=== PATIENT | male | born 1985 | race Caucasian/White ===

== ENCOUNTER → 2019-09-07 11:42 | Outpatient (CLI) | payer OTHER, SELFPAY ==
[2019-09-07 11:50] LABS: Lyme Ab Screen Interpretation REF LAB
[2019-09-07 15:25] LABS: Absolute Lymphocyte Count 1.51 X10^3/uL (0.83-4.51); Absolute Neutrophil Count 5.3 X10^3/uL (2.0-7.7); Basophil# 0.05 X10^3/uL; Basophil% 0.6 % (0-1); Eosinophil# 0.12 X10^3/uL; Eosinophils% 1.5 % (0-5); Hematocrit 45.7 % (40-54); Hemoglobin 15.1 g/dL (13.0-16.5); Lymphocyte # 1.51 X10^3/ul (4.0); Lymphocyte % 19.4 % (19-41); Mean Corpuscular Hgb 29.1 pg (27.0-32.0); Mean Corpuscular Volume 88.1 fL (80-94); Monocyte# 0.74 X10^3/uL; Monocyte% 9.5 % (0-10); NRBC Flagged by Analyzer 0 % (0-5); Neutrophil # 5.31 X10^3/uL (2.7-7.7); Neutrophil % 68.4 % (47-70); Platelet Count 274 K/mm3 (150-450); RBC Distribution Width CV 12.3 % (11.6-14.6); RBC Distribution Width SD 39.4 fl (35.1-43.9); Red Blood Count 5.19 M/mm3 (4.6-6.2); White Blood Count 7.8 K/mm3 (4.4-11.0)
[2019-09-07 15:43] LABS: ALB/GLOB Ratio 1.2 RATIO (0.9-2.4); AST(SGOT) 61 U/L (15-37); Alanine Aminotransfer ALT/SGPT 190 U/L (16-61); Albumin, Serum 4.4 g/dL (3.2-5.0); Alkaline Phosphatase 65 U/L (45-117); Anion Gap 8 (5-15); BUN 13 mg/dL (7-18); BUN/Creat Ratio 12.4 RATIO (10-20); Calcium,Total 9.4 mg/dL (8.5-10.1); Chloride 99 mmol/L (98-107); Creatinine, Serum 1.05 mg/dL (0.70-1.30); EST Glomerular Filtration Rate 85 mL/min (>60); Est Glom Filt Rate - Afr Amer 103 mL/min (>60); Globulin 3.6 g/dL (2.2-4.2); Glucose 91 mg/dL (74-106); Potassium 3.6 mmol/L (3.5-5.1); Sodium Level 138 mmol/L (136-145); Thyroid Stim Hormone (TSH) 2.91 uIU/mL (0.358-3.74)
[2019-09-17 13:48] LABS: Lyme Scn Total Ab w/Rflx 2.51 ISR (0.00-0.90)
== END ==
PROVIDERS: PCP Family Medicine; Referring Provider Family Medicine; Visit Provider Family Medicine
DX: R53.83 Other fatigue (principal); W57.XXXS Bitten or stung by nonvenomous insect and other nonvenomous arthropods, sequela
CPT/HCPCS: 36415; 80053; 84443; 85025; 86618

== ENCOUNTER 2019-10-02 19:51 | Emergency (ER) | payer OTHER, SELFPAY ==
[2019-10-02 19:52] VITALS: BP 154/104; PULSE 73; RESP 17; TEMP 36.6; O2SAT 97; BMI 29.9
[2019-10-02 20:11] LABS: Absolute Lymphocyte Count 1.64 X10^3/uL (0.83-4.51); Absolute Neutrophil Count 5.2 X10^3/uL (2.0-7.7); Basophil# 0.07 X10^3/uL; Basophil% 0.9 % (0-1); Eosinophils% 2.5 % (0-5); Hematocrit 43.7 % (40-54); Hemoglobin 15.5 g/dL (13.0-16.5); Lymphocyte # 1.64 X10^3/ul (4.0); Lymphocyte % 20.7 % (19-41); Mean Corp Hgb Conc 35.5 g/dL (32-36); Mean Corpuscular Hgb 29.8 pg (27.0-32.0); Mean Platelet Vol. 8.6 fl (6.2-12.0); Monocyte# 0.75 X10^3/uL; Monocyte% 9.5 % (0-10); NRBC Flagged by Analyzer 0 % (0-5); Neutrophil # 5.22 X10^3/uL (2.7-7.7); Platelet Count 286 K/mm3 (150-450); RBC Distribution Width CV 12.1 % (11.6-14.6); RBC Distribution Width SD 36.8 fl (35.1-43.9); White Blood Count 7.9 K/mm3 (4.4-11.0)
[2019-10-02 20:23] LABS: Anion Gap 6 (5-15); BUN 12 mg/dL (7-18); BUN/Creat Ratio 10.4 RATIO (10-20); Calcium,Total 9.1 mg/dL (8.5-10.1); Chloride 102 mmol/L (98-107); Creatinine, Serum 1.15 mg/dL (0.70-1.30); EST Glomerular Filtration Rate 77 mL/min (>60); Est Glom Filt Rate - Afr Amer 93 mL/min (>60); Estimated Creatinine Clearance 80.91 ml/min; Glucose 90 mg/dL (74-106); Potassium 3.7 mmol/L (3.5-5.1); Sodium Level 139 mmol/L (136-145)
--- NOTE | 2019-10-02 20:53 | CT_ITS ---
STUDY: CT ABDOMEN AND PELVIS WITH CONTRAST REASON FOR EXAM: Male, 33 years old. History of Lyme disease 2 weeks ago, abdominal pain. RADIATION DOSAGE (If Supplied By Facility): CTDIvol = ( 7.14 ) mGy, DLP = ( 380.21 ) mGycm TECHNIQUE: Transaxial images were obtained from the dome of the diaphragm to the symphysis pubis without oral contrast. IV 100mL Isovue-370 was administered. Sagittal and coronal images were reconstructed. Individualized dose optimization techniques were used for this CT. COMPARISON: None. FINDINGS: The visualized portions of lung bases demonstrate hypoventilatory changes. Vague densities are seen in the right lower lung and mild groundglass opacity. Early infiltrate is possible.. The visualized portions of the heart are within normal limits. Normal liver. The gallbladder is contracted. Normal spleen. Normal pancreas. Normal bilateral adrenal glands. Normal right kidney. Normal left kidney. Normal visualized stomach. Normal small intestine. No evidence of acute diverticulitis. Fecal retention. The appendix is visualized and appears normal. Normal abdominal aorta. Normal inferior vena cava. Normal retroperitoneum. Normal urinary bladder. There is a small umbilical hernia containing fat. The osseous structures are essentially unremarkable. CT/Abdomen/Pelvis without Cont IMPRESSION: 1. Vague) densities which may represent early infiltrate or atelectasis. 2. Otherwise no demonstrated acute process. Electronically Signed: Daniel Son MD at 21:54 EDT Tel , Service support ,
--- NOTE | 2019-10-02 20:54 | ED.DCSUM_ITS ---
History of Present Illness Chief Complaint: Abd Pain Informant: Patient Onset: Yesterday Current Severity: Mild Maximum Severity: Moderate Narrative: Patient present secondary to bilateral abdominal pain. Symptoms started yesterday morning. He states it seems to move around. 2 weeks ago patient was seen by his PCP with a 2-week history of generalized body aches and not feeling well. At that time he requested a Covid test and a Lyme test. His Lyme antibody titers came back elevated. He was given a week of doxycycline which he finished on Friday. By Friday he states the body aches which had improved had returned. Yesterday he developed bilateral abdominal pain. He denies fever or chills. He denies nausea or vomiting. He developed a slight rash on his abdomen today. - Past Medical History (1) Lyme disease Status: Acute Past Medical History - Allergies and Home Meds Allergies/Adverse Reactions: Allergies No Known Allergies Allergy (Verified 10/02/19 19:51) Primary Care Physician: Chad Medeiros MD [Primary Care Provider] - Prior records reviewed: Yes Lives: Spouse/ Significant Other Review of Systems General: Denies: Chills, Fever Eyes: Denies: Visual changes - bilaterally ENT: Denies: Bilateral ear pain Cardiovascular: Denies: Chest pain Respiratory: Denies: Dyspnea, Cough Gastrointestinal: Reports: Abdominal pain. Denies: Nausea, Vomiting, Diarrhea Genitourinary: Denies: Dysuria Musculoskeletal: Denies: Swelling, Extremity Pain Skin: Reports: Rash Neurological: Denies: Headache Hematologic: Denies: Easy bruising Allergy: Denies: Uticaria Physical Exam Vital Signs/Narrative: Vital Signs Temp Pulse Resp BP Pulse Ox 10/02/19 19:52 97.9 F 73 17 154/104 H 97 Inital Vital Signs reviewed: Yes General: Well nourished, Well developed Head: Normocephalic ENT: Moist mucous membranes Neck: Supple Cardiovascular: Regular rate, Regular rhythm Respiratory: No distress, CTA bilaterally Abdomen: Soft, Nontender, Hypoactive bowel sounds Back: Nontender Skin: - - Faint lacy erythema over the abdomen. This is present on both right and left sides. Does not follow dermatomal distribution. No vesicles. Neurological: Alert, Oriented x3, Normal Strength, Normal Sensation Psychological: Normal affect Diagnostic/Tx/Re-eval Impressions Abdomen/Pelvis CT 10/02/19 20:53 IMPRESSION: 1. Vague) densities which may represent early infiltrate or atelectasis. 2. Otherwise no demonstrated acute process. Electronically Signed: Daniel Son MD at 21:54 EDT Tel , Service support , 10/02/19 20:53 Abdomen/Pelvis without Cont [CT] Stat Laboratory Results 10/02/19 10/02/19 10/02/19 19:50 19:50 19:57 WBC 7.9 RBC 5.20 Hgb 15.5 Hct 43.7 MCV 84.0 MCH 29.8 MCHC 35.5 RDW Std Deviation 36.8 RDW Coeff of Karlo 12.1 Plt Count 286 MPV 8.6 Immature Gran % (Auto) 0.400 Neut % (Auto) 66.0 Lymph % (Auto) 20.7 [place] % (Auto) 9.5 Eos % (Auto) 2.5 Baso % (Auto) 0.9 Absolute Neuts (auto) 5.2 Absolute Lymphs (auto) 1.64 Nucleated RBC % 0 Sodium 139 Potassium 3.7 Chloride 102 Carbon Dioxide 31.0 Anion Gap 6 BUN 12 Creatinine 1.15 Estim Creat Clear Calc 80.91 Est GFR (MDRD) Af Amer 93 Est GFR (MDRD) Non-Af 77 BUN/Creatinine Ratio 10.4 Glucose 90 Calcium 9.1 Total Bilirubin 0.60 Direct Bilirubin 0.19 AST 48 H ALT 154 H Alkaline Phosphatase 63 Total Protein 8.0 Albumin 4.6 Globulin 3.4 Lipase 195 Urine Color Urine Clarity Urine pH Ur Specific [place] Urine Protein Urine Glucose (UA) Urine Ketones Urine Occult Blood Urine Nitrite Urine Bilirubin Urine Urobilinogen Ur Leukocyte Esterase Urine RBC Urine WBC Ur Squamous Epith Cells Urine Bacteria Urine Mucus 10/02/19 22:10 WBC RBC Hgb Hct MCV MCH MCHC RDW Std Deviation RDW Coeff of [place] Plt Count MPV Immature Gran % (Auto) Neut % (Auto) Lymph % (Auto) [place] % (Auto) Eos % (Auto) Baso % (Auto) Absolute Neuts (auto) Absolute Lymphs (auto) Nucleated RBC % Sodium Potassium Chloride Carbon Dioxide Anion Gap BUN Creatinine Estim Creat Clear Calc Est GFR (MDRD) Af Amer Est GFR (MDRD) Non-Af BUN/Creatinine Ratio Glucose Calcium Total Bilirubin Direct Bilirubin AST ALT Alkaline Phosphatase Total Protein Albumin Globulin Lipase Urine Color Yellow Urine Clarity Sl. Cloudy Urine pH 7.0 Ur Specific [place] 1.010 Urine Protein Negative Urine Glucose (UA) Normal Urine Ketones Negative Urine Occult Blood Negative Urine Nitrite Negative Urine Bilirubin Negative Urine Urobilinogen Normal Ur Leukocyte Esterase Negative Urine RBC 0 SEEN Urine WBC 0 SEEN Ur Squamous Epith Cells 0 SEEN Urine Bacteria 0 SEEN Urine Mucus 0 SEEN - Medical Decision Making Work-up here is largely unremarkable. ALT and AST are elevated, but improved when compared to labs from few weeks ago. Patient has had 1 week of doxycycline. Typical treatment for Lyme disease is 14 to 21 days. He will be given a prescription for 2 additional weeks. ED Disposition - Plan for ED Patient: Disposition: Home or Assisted Living Diagnosis: Abdominal pain, Lyme disease Instructions: ED Unknown Causes of Abdominal Pain Male, ED Lyme Disease Prescriptions: Doxycycline 100 mg PO BID #28 cap Transmission Status: Pending to [id number] Referrals: Chad Medeiros MD [Primary Care Provider] - 1-2 Weeks
[2019-10-02 21:27] LABS: AST(SGOT) 48 U/L (15-37); Alanine Aminotransfer ALT/SGPT 154 U/L (16-61); Albumin, Serum 4.6 g/dL (3.2-5.0); Alkaline Phosphatase 63 U/L (45-117); Bilirubin, Direct 0.19 mg/dL (0.00-0.30); Globulin 3.4 g/dL (2.2-4.2); Lipase 195 U/L (73-393)
[2019-10-02 22:15] LABS: Bacteria 0 SEEN /hpf (None Seen); Mucous, Urine 0 SEEN /hpf (<or=2+); Red Blood Cells-Urine 0 SEEN /hpf (0-5); Squamous Epithelial Cells - UA 0 SEEN /hpf (0-5); White Blood Cells 0 SEEN /hpf (0-5)
[2019-10-02 22:20] LABS: Color, Urine Yellow (Yellow); Glucose, Dipstick Normal (Normal); Ketone-Dipstick Negative (Negative); Leukocyte Esterase-Dipstick Negative /ul (Negative); Nitrite-Dipstick Negative (Negative); Occult Blood-Urine Negative /ul (Negative); Protein-Dipstick Negative (Negative); Urine Bilirubin Dipstick Negative (Negative); Urine Clarity Sl. Cloudy (Clear); Urine Urobilinogen Normal (Normal)
[2019-10-02 22:36] VITALS: BP 138/87; PULSE 90; RESP 18; O2SAT 98
[2019-10-02] MEDS: Doxycycline 100 MG CAPSULE PO (22:47)
== END 2019-10-02 22:50 | disposition home or self-care (01) ==
PROVIDERS: Emergency Provider Emergency Medicine; PCP Family Medicine
DX: R10.9 Unspecified abdominal pain (principal); A69.20 Lyme disease, unspecified
CPT/HCPCS: 74176; 80048; 80076; 81001; 83690; 85025; 99283; A4216

== ENCOUNTER → 2019-10-04 11:51 | Outpatient (CLI) | payer OTHER, SELFPAY ==
[2019-10-02 19:52] VITALS: BMI 29.9
[2019-10-09 20:07] LABS: Lyme IgG P18 Ab Absent (.); Lyme IgG P23 Ab Absent (.); Lyme IgG P28 Ab Present (.); Lyme IgG P30 Ab Present (.); Lyme IgG P39 Ab Absent (.); Lyme IgG P41 Ab Present (.); Lyme IgG P45 Ab Absent (.); Lyme IgG P58 Ab Present (.); Lyme IgG P66 Ab Absent (.); Lyme IgG P93 Ab Present (.); Lyme IgM P23 Ab Absent (.); Lyme IgM P39 Ab Absent (.); Lyme IgM P41 Ab Absent (.)
[2019-10-10 04:48] LABS: Lyme IgG WB Interpretation Positive (.); Lyme IgM WB Interpretation Negative (.)
== END ==
PROVIDERS: PCP Family Medicine; Referring Provider Family Medicine; Visit Provider Family Medicine
DX: A69.20 Lyme disease, unspecified (principal)
CPT/HCPCS: 36415; 86617

== ENCOUNTER → 2019-10-20 | Outpatient (CLI) | payer OTHER, SELFPAY ==
[2019-10-02 19:52] VITALS: BMI 29.9
[2019-10-21 06:41] LABS: SARS-COV-2 TOTAL ABS Nonreactive (Nonreactive)
== END | disposition home or self-care (01) ==
LOC: MFPLAB 15:56 → LABSPEC 15:58
PROVIDERS: PCP Family Medicine; Referring Provider Family Medicine
DX: A69.20 Lyme disease, unspecified (principal)
CPT/HCPCS: 86769

== ENCOUNTER → 2022-05-14 | Outpatient (CLI) | payer OTHER, SELFPAY ==
--- NOTE | 2022-05-14 11:06 | RAD_ITS ---
EXAM: XR LEFT ANKLE COMPLETE, 3 OR MORE VIEWS CLINICAL INDICATION: ANKLE STRAIN TECHNIQUE: Frontal, lateral and oblique views of the left ankle. This report was created using [employer] report generation technology. COMPARISON: None. FINDINGS: BONES/JOINTS: Unremarkable. No acute fracture. No subluxation. Normal alignment. Preservation of the joint space. No sclerotic or destructive changes observed. SOFT TISSUES: Unremarkable. No soft tissue swelling or gas. No radiopaque foreign body. RAD/Ankle min 3 Views IMPRESSION: Negative left ankle x-rays. Electronically Signed: Andrea Lawrence MD at 17:23 EST ,
== END | disposition home or self-care (01) ==
LOC: MTRAD 11:05
PROVIDERS: PCP Family Medicine; Referring Provider Family Medicine; Visit Provider Family Medicine
DX: S96.912A Strain of unspecified muscle and tendon at ankle and foot level, left foot, initial encounter (principal)
CPT/HCPCS: 73610

== ENCOUNTER → 2022-10-09 | Outpatient (CLI) | payer OTHER, SELFPAY ==
--- NOTE | 2022-10-09 09:50 | RAD_ITS ---
INDICATION: Left palm injury EXAMINATION/TECHNIQUE: X-RAY - LEFT XR Hand Min 3 Views COMPARISON: None. FINDINGS: No acute fracture or malalignment. No blastic or lytic lesions. No degenerative changes are seen. The soft tissues are unremarkable. RAD/Hand Min 3 Views IMPRESSION: No acute radiographic abnormalities. Electronically Signed: Deshawn Marsh MD at 18:57 EDT ,
== END | disposition home or self-care (01) ==
LOC: MTRAD 09:46
PROVIDERS: PCP Family Medicine; Referring Provider Family Medicine; Visit Provider Family Medicine
DX: S69.92XA Unspecified injury of left wrist, hand and finger(s), initial encounter (principal); X58.XXXA Exposure to other specified factors, initial encounter
CPT/HCPCS: 73130

== ENCOUNTER → 2022-10-29 | Outpatient (CLI) | payer OTHER, SELFPAY ==
[2022-11-02 15:07] LABS: Lyme IgG P18 Ab Absent (.); Lyme IgG P23 Ab Present (.); Lyme IgG P28 Ab Present (.); Lyme IgG P30 Ab Present (.); Lyme IgG P39 Ab Absent (.); Lyme IgG P41 Ab Present (.); Lyme IgG P45 Ab Absent (.); Lyme IgG P58 Ab Present (.); Lyme IgG P66 Ab Absent (.); Lyme IgG P93 Ab Absent (.); Lyme IgG WB Interpretation Positive (.); Lyme IgM P23 Ab Absent (.); Lyme IgM P39 Ab Absent (.); Lyme IgM P41 Ab Absent (.); Lyme IgM WB Interpretation Negative (.)
== END | disposition home or self-care (01) ==
LOC: MTLAB 12:46
PROVIDERS: PCP Family Medicine; Referring Provider Family Medicine; Visit Provider Family Medicine
DX: S20.361A Insect bite (nonvenomous) of right front wall of thorax, initial encounter (principal); W57.XXXA Bitten or stung by nonvenomous insect and other nonvenomous arthropods, initial encounter
CPT/HCPCS: 36415; 86617

== ENCOUNTER → 2022-11-05 | Outpatient (CLI) | payer OTHER, SELFPAY ==
[2022-11-05 18:32] LABS: Absolute Neutrophil Count 5.1 X10^3/uL (2.0-7.7); Basophil# 0.05 X10^3/uL; Basophil% 0.7 % (0-1); Eosinophil# 0.07 X10^3/uL; Hematocrit 43.6 % (40-54); Hemoglobin 14.6 g/dL (13.0-16.5); Lymphocyte % 17.5 % (19-41); Mean Corp Hgb Conc 33.5 g/dL (32-36); Mean Corpuscular Hgb 29.4 pg (27.0-32.0); Mean Corpuscular Volume 87.9 fL (80-94); Monocyte# 0.47 X10^3/uL; Monocyte% 6.8 % (0-10); NRBC Flagged by Analyzer 0 % (0-5); Neutrophil # 5.06 X10^3/uL (2.7-7.7); Neutrophil % 73.7 % (47-70); Platelet Count 293 K/mm3 (150-450); RBC Distribution Width SD 41.8 fl (35.1-43.9); Red Blood Count 4.96 M/mm3 (4.6-6.2); White Blood Count 6.9 K/mm3 (4.4-11.0)
[2022-11-05 19:06] LABS: ALB/GLOB Ratio 1.3 RATIO (0.9-2.4); AST(SGOT) 18 U/L (15-37); Alanine Aminotransfer ALT/SGPT 25 U/L (16-61); Albumin, Serum 4.2 g/dL (3.2-5.0); Alkaline Phosphatase 67 U/L (45-117); Anion Gap 7 (5-15); BUN 17 mg/dL (7-18); BUN/Creat Ratio 17.5 RATIO (10-20); Calcium,Total 9.4 mg/dL (8.5-10.1); Chloride 105 mmol/L (98-107); Cholesterol 157 mg/dL (200); Creatinine, Serum 0.97 mg/dL (0.70-1.30); EST Glomerular Filtration Rate 91 mL/min (>60); Est Glom Filt Rate - Afr Amer 110 mL/min (>60); Globulin 3.3 g/dL (2.2-4.2); Glucose 85 mg/dL (74-106); High Density Lipoprotein 68 mg/dL; Protein, Total 7.5 g/dL (6.4-8.2); Sodium Level 139 mmol/L (136-145); Triglycerides 92 mg/dL; Very Low Density Lipoprotein 18 mg/dL (5-40)
== END | disposition home or self-care (01) ==
LOC: MFPLAB 16:24
PROVIDERS: PCP Family Medicine; Visit Provider Family Medicine
DX: Z00.00 Encounter for general adult medical examination without abnormal findings (principal); Z13.220 Encounter for screening for lipoid disorders
CPT/HCPCS: 36415; 80053; 80061; 85025

== ENCOUNTER → 2022-11-07 | Outpatient (CLI) | payer OTHER, SELFPAY ==
--- NOTE | 2022-11-11 07:40 | PFT ---
INTRODUCTION: The patient is a 37-year-old male who presents for pulmonary function studies secondary to a diagnosis of shortness of breath. Respiratory therapy reported good patient effort. Bronchodilators were used during testing. INTERPRETATION: Forced expiration spirometry demonstrates no evidence of a large airways obstructive ventilatory defect. There was no significant response to aerosolized bronchodilators. Spirograms are of good quality and plateau normally. Body plethysmography was performed and revealed lung volumes to be within normal limits. Diffusing capacity by single breath CO was also within normal limits. IMPRESSION: Grossly normal pulmonary function studies.
== END | disposition home or self-care (01) ==
LOC: PSN 08:19
PROVIDERS: PCP Family Medicine; Referring Provider Family Medicine; Visit Provider Family Medicine
DX: R06.02 Shortness of breath (principal)
CPT/HCPCS: 94060; 94726; 94729

== ENCOUNTER 2023-12-11 19:33 | Emergency (ER) | payer OTHER, SELFPAY ==
[2023-12-11 19:35] VITALS: BP 147/96; PULSE 84; RESP 16; TEMP 35.5; O2SAT 95
--- NOTE | 2023-12-11 20:04 | EX.ED.UPPERE ---
HPI <JIMENEZ Rodriguez - Last Filed: 12/11/23 21:26> History of Present Illness Chief Complaint: Upper Extremity Injury Narrative Narrative: Patient is a 38-year-old male with no significant medical history presents to the [facility] apartment with right shoulder pain. Patient was playing soccer when he fell on his right shoulder. Patient states that he is having significant pain with any sort of movement. Patient does have pain into his clavicle. He denies any head or neck injury. PFSH <JIMENEZ Rodriguez - Last Filed: 12/11/23 21:26> [facility] Home Medications ?Medication ?Instructions ?Recorded ?Last Taken ?Type doxycycline monohydrate 100 mg 100 mg PO BID #28 caps 10/02/19 Unknown Rx capsule ibuprofen 600 mg tablet 600 mg PO Q6H PRN PRN pain #20 12/11/23 Unknown Rx TABLETS ondansetron 4 mg disintegrating 4 mg PO Q8H PRN PRN Nausea #10 tabs 12/11/23 Unknown Rx tablet oxycodone-acetaminophen 5 mg-325 1 tab PO Q8H PRN pain 3 days #12 12/11/23 Unknown Rx mg tablet (Percocet) tabs Allergy/AdvReac Type Severity Reaction Status Date / Time No Known Allergies Allergy Verified 12/11/23 19:35 Social History Smoking Status: Former smoker ROS <JIMENEZ Rodriguez - Last Filed: 12/11/23 21:26> ROS ED ROS Narrative Constitutional: Negative for fever, chills, weight loss, weakness Eyes: Negative for vision loss, vision change, double vision ENT: Negative for any sore throat, ear pain, congestion Cardiovascular: Negative for any chest pain, tightness, palpitations Respiratory: Negative for any cough, sputum production, hemoptysis, dyspnea, dyspnea on exertion, orthopnea Gastrointestinal: Negative for any abdominal pain, nausea, vomiting, diarrhea, constipation, blood in stool, blood in vomit : Negative for any urinary frequency, dysuria, retention, blood in urine Muscle skeletal: Negative for any neck pain, back pain. Positive right shoulder pain Neurological: Negative for any headache, syncope, dizziness Skin: Negative for any rashes, itching, abrasions, lacerations Psychiatric: Negative for any depression, anxiety, stress, suicidal ideation, homicidal ideation Hematologic: Negative for any excessive bruising, easy bleeding EXAM <JIMENEZ Rodriguez - Last Filed: 12/11/23 21:26> Physical Exam Narrative Exam Narrative: Vital signs reviewed. Extremities: Patient does have some pain to the anterior shoulder, distal clavicular area. Is difficult to see if there is any deformity secondary the patient being unable to move the right arm from the body. Patient is able to make a full fist. +2 radial pulse. No numbness or tingling noted. Neuro: Cranial nerves II through XII intact, no focal neurological deficits. Skin: Clean dry and intact with no rash, purpura, petechiae, vesicles or pustules. Backs/flank: No CVA tenderness, no midline spinal tenderness, no deformity. Psych: Normal mood and affect. No SI, HI or acute psychosis. Const Vital Signs: 12/11/23 19:35 Temperature 96 F L Temperature Source Temporal Pulse Rate 84 Respiratory Rate 16 Blood Pressure 147/96 H Blood Pressure Mean 113 Pulse Ox 95 Oxygen Delivery Method Room Air MDM <JIMENEZ Rodriguez - Last Filed: 12/11/23 21:26> MDM Treatment and Re-Evaluation Narrative: Differential diagnosis includes however is not limited to: Clavicular fracture, humeral fracture, shoulder joint dislocation, contusion Patient appears to be in mild distress secondary to pain to the right shoulder. Presenting to the emergency department for pain to the right shoulder after mechanical fall while playing soccer. Patient will receive x-rays of the right shoulder, I am dose of morphine, oral Zofran will be given. All radiologic examinations were read, reviewed by the emergency department attending. From these reads, a plan of care will be put in place. Patient was redosed with oxycodone. Patient's shoulder x-ray was negative. However patient does have a mid clavicular fracture, clavicle film shows comminuted angulated displaced and distracted fracture of the mid right clavicle. I did speak with orthopedic, Dr. Victoria. Patient was placed in a sling, will follow-up outpatient. Patient be given pain medicine. Instructed to return for any worsening symptoms. Patient stable for discharge <Dr. Candida Shipley DO - Last Filed: 12/11/23 22:22> [facility] Treatment and Re-Evaluation Narrative: Differential diagnosis includes however is not limited to: Clavicular fracture, humeral fracture, shoulder joint dislocation, contusion Patient appears to be in mild distress secondary to pain to the right shoulder. Presenting to the emergency department for pain to the right shoulder after mechanical fall while playing soccer. Patient will receive x-rays of the right shoulder, I am dose of morphine, oral Zofran will be given. All radiologic examinations were read, reviewed by the emergency department attending. From these reads, a plan of care will be put in place. Patient was redosed with oxycodone. Patient's shoulder x-ray was negative. However patient does have a mid clavicular fracture, clavicle film shows comminuted angulated displaced and distracted fracture of the mid right clavicle. I did speak with orthopedic, Dr. Victoria. Patient was placed in a sling, will follow-up outpatient. Patient be given pain medicine. Instructed to return for any worsening symptoms. Patient stable for discharge I have personally performed a face to face assessment of the patient and have reviewed the AMY Note. I performed a substantive portion of the visit including all aspects of the following. My randall findings include: History is patient is a 38-year-old male with no signal past medical history besides Lyme disease presenting for acute onset of right shoulder pain. Patient was playing soccer when he was pushed by another player and landed on his shoulder. He is having significant pain. Is worse with any movement. Denies any head injury or loss of conscious. Denies associate numbness or tingling. No other complaints or concerns at this time. Exam is patient has tenderness and swelling over the right mid clavicle. No tenderness palpation over the shoulder. Decreased range of motion of the shoulder secondary to pain. No obvious deformity of the shoulder. Normal strength of the right hand. No other bony tenderness or abnormalities appreciated. Lungs clear to auscultation bilaterally. Heart regular rate and rhythm. No open wounds. Medical Decison Making Protocol x-ray shows a comminuted right clavicle fracture. Right shoulder x-ray does not show any fracture dislocation of the shoulder/proximal humerus but does also show the clavicle fracture. This is reviewed by myself as well as radiology. Patient placed in a sling. Given IM morphine initially for pain and then oral oxycodone. Nurse practitioner spoke with Dr. Victoria who is agreeable with outpatient follow-up. Discussed pain control. Will be treated with oxycodone and Motrin. Given return precautions. Discharged home in stable condition Other additions or changes: [None] Discharge Plan Triage Chief Complaint: Upper Extremity Injury ED Midlevel Provider: Reji Hoff ED Provider: Candida Shipley Dx/Rx/DC Orders Clinical Impression: Clavicular fracture Instructions: ED Fracture, Clavicle Prescriptions: New oxycodone-acetaminophen [Percocet] 5-325 mg tablet 1 tab PO Q8H PRN (Reason: pain) 3 Days Qty: 12 0RF ibuprofen 600 mg tablet 600 mg PO Q6H PRN PRN (Reason: pain) Qty: 20 0RF ondansetron 4 mg tablet,disintegrating 4 mg PO Q8H PRN PRN (Reason: Nausea) Qty: 10 0RF No Action doxycycline monohydrate 100 MG capsule 100 mg PO BID Qty: 28 0RF Primary Care Provider: Care Physician,No Primary Referrals: Hernan Victoria MD [Med Staff - Active Staff] - Care Physician,No Primary [Primary Care Provider] - Activity Restrictions/Additional Instructions: You need to wear the sling anytime when you are up. Use the pain medicine including the Percocet as well as the ibuprofen. Ensure that you ice, they will be very important. You need to follow-up outpatient. Print Language: Vincentian Disposition Disposition: Home, Self Care
--- NOTE | 2023-12-11 20:20 | RAD_ITS ---
STUDY: X-RAY - RIGHT SHOULDER REASON FOR EXAM: Male, 38 years old. fall TECHNIQUE: 2 view(s) of the shoulder. COMPARISON: None. FINDINGS: Comminuted displaced fractures of the mid right clavicle. Normal glenohumeral articulation. Normal acromioclavicular joint. Normal acromion. Normal humeral head and visualized proximal humerus. The soft tissue structures are unremarkable. Normal visualized pulmonary apex. RAD/Shoulder min 2 Views IMPRESSION: Mid clavicular fracture, otherwise normal x-ray examination of the shoulder. Electronically Signed: Augie Alcala MD at 20:51 EDT ,
[2023-12-11] MEDS: Morphine 4 MG/ML Syringe IM (20:30)
[2023-12-11] MEDS: Ondansetron ODT 4 MG Tablet PO (20:30)
--- NOTE | 2023-12-11 20:30 | RAD_ITS ---
STUDY: X-RAY - RIGHT CLAVICLE REASON FOR EXAM: Male, 38 years old. FX TECHNIQUE: 2 view(s) of the clavicle. COMPARISON: None. FINDINGS: Comminuted displaced and a fracture of the mid right clavicle with a 2.6 cm distracted butterfly fragment directed caudal. Normal acromioclavicular articulation. Normal visualized sternoclavicular articulation. Normal visualized pulmonary apex. RAD/Clavicle IMPRESSION: Comminuted angulated displaced and distracted fractures of the mid right clavicle. Electronically Signed: Augie Alcala MD at 20:50 EDT ,
[2023-12-11] MEDS: oxyCODONE 5 MG Tablet PO (21:56)
== END 2023-12-11 22:13 | disposition home or self-care (01) ==
PROVIDERS: Emergency Provider Emergency Medicine; Visit Provider Emergency Medicine
DX: S42.001A Fracture of unspecified part of right clavicle, initial encounter for closed fracture (principal); W18.39XA Other fall on same level, initial encounter; Y93.66 Activity, soccer; Z87.891 Personal history of nicotine dependence
CPT/HCPCS: 73000; 73030; 96372; 99282

== ENCOUNTER 2023-12-19 10:43 | Day surgery (SDC) | payer OTHER, SELFPAY ==
[2023-12-19] VITALS (10 sets, daily range): BP systolic 116–135; BP diastolic 61–90; PULSE 55–78; RESP 16–18; TEMP 36.1–36.6; O2SAT 91–100; BMI 25.0
[2023-12-19] MEDS: Lactated Ringers 1,000 ML 15 ML IV (11:24)
--- NOTE | 2023-12-19 11:56 | PCM.PRE.AN2 ---
ASA Classification* ASA Classification ASA Classification: 2 Assessment & Plan Anesthesia* Anesthesia Assessment Anesthesia Assessment: Discussed sedation and/or anesthesia options, risks, benefits, and alternatives with patient/parents/legal guardian/POA. Questions invited. The patient/parents/legal guardian/POA seems to understand and agrees to proceed with anesthesia plan. Reviewed the physical assessment, medical history, allergy history and patient home medications list prior to surgery/procedure/anesthetic and documented any changes. Performed airway and anesthesia risk assessments. Anesthesia Type Anesthesia Type: General and Block (Patient is consented for interscalene block.) History Source History Obtained from:: Patient and Chart Anesthesia Focused Assessment* Temperature: 98 F Pulse Rate: 55 Blood Pressure: 131/83 Respiratory Rate: 16 Pulse Ox: 100 Oxygen Delivery Method: Room Air Airway Assessment Mouth opens: >3 cm Mallampati Score: II Teeth Condition: Caps/Crowns (Patient has a crown top left molar. It is tight.) and Chipped/Broken (Patient has a chipped tooth at #9.) Neck Range of motion (ROM): Full ROM Focused Labs Anesthesia Preop lab: CBC WBC 6.9 K/mm3 (4.4-11.0) 11/05/22 16:29 RBC 4.96 M/mm3 (4.6-6.2) 11/05/22 16:29 Hgb 14.6 g/dL (13.0-16.5) 11/05/22 16:29 Hct 43.6 % (40-54) 11/05/22 16:29 Plt Count 293 K/mm3 (150-450) 11/05/22 16:29 CHEMISTRY Potassium 4.0 mmol/L (3.5-5.1) 11/05/22 16:29 Sodium 139 mmol/L (136-145) 11/05/22 16:29 BUN 17 mg/dL (7-18) 11/05/22 16:29 Creatinine 0.97 mg/dL (0.70-1.30) 11/05/22 16:29 Glucose 85 mg/dL (74-106) 11/05/22 16:29 TSH 2.91 uIU/mL (0.358-3.74) 09/07/19 11:48 COAG Pre-Assessment Diagnosis/Proposed Procedure Planned Operative Procedure(s): orif right clavicle Anesthesia History 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 When Was Last Pacemaker Check QUESTION #4 FULL TEXT: You/Your Family Experience fever (hyperthermia) with Anesthesia Last Oral Intake Last Oral intake: Last Oral Intake NPO since 21:00 12/19/23 11:25 Meds taken in AM with sips of No 12/19/23 11:25 water? Meds patient instructed to take am of surgery PONV PONV - chief lock tender operator: PONV - chief lock tender operator Female No 12/17/23 11:18 HX of Motion Sickness Yes 12/17/23 11:18 HX of N/V After Surgery No 12/17/23 11:18 Non-Smoker Yes 12/17/23 11:18 Duration of Surgery greater Yes 12/17/23 11:18 than 60 minutes Number of Risk Factors 3 12/17/23 11:18 PONV Score Moderate Risk 12/17/23 11:18 Height & Weight Height & Weight: Anesthesia: Height & Weight Height 5 ft 10 in 12/19/23 11:25 Weight: 79 kg 12/19/23 11:25 Body Mass Index (BMI) 25.0 12/19/23 11:25 Respiratory Assessment Respiratory Assessment - chief lock tender operator: Respiratory Tract Infection Hx - chief lock tender operator Hx Respiratory Tract Infection No 12/17/23 11:18 STOP Sleep Apnea STOP Sleep Apnea - chief lock tender operator: STOP Sleep Apnea - chief lock tender operator Hx Hypertension No 12/17/23 11:18 Hx Sleep Apnea No 12/17/23 11:18 CPAP BIPAP Do you snore loudly (louder No 12/17/23 11:18 than talking or can be heard Do you often feel tired/ No 12/17/23 11:18 fatigued/ sleepy during daytime? Has anyone observed you stop No 12/17/23 11:18 breathing during sleep? STOP Results Negative 12/17/23 11:18 QUESTION #5 FULL TEXT : Do you snore loudly (louder than talking or can be heard through closed doors)? 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 Specify any problems Hx of Preganancy in last 3 N/A 12/17/23 11:18 Months Nurse Filling Out Transfusion NBUCHER 12/17/23 11:18 & Questions: Date: 12/17/23 12/17/23 11:18 Time: 11:19 12/17/23 11:18 Patient unable to answer at this time (ie. confused, unrespo /Reproduction History /Reproductive History - chief lock tender operator: /Reproductive Hx- chief lock tender operator Hx Now No 12/17/23 11:18 Gestational Age (in weeks): EDC: Hx Hx Para Hx Section SAB No 12/17/23 11:18 Active Medications Active Medications: Current Medications Generic Name Dose Route Start Last Admin Trade Name Freq PRN Reason Stop Dose Admin Cefazolin Sodium 2 gm/ Sodium 110 mls @ 150 mls/hr 12/19/23 12:15 Chloride IV 12/19/23 12:58 PREOP ONE Lactated Ringer's 1,000 mls @ 15 mls/hr 12/19/23 11:00 12/19/23 11:24 IV 15 mls/hr .Q48H JC Administration PFSH Medical History Alcohol use Restless legs Non-smoker Home Medications ?Medication ?Instructions ?Recorded ?Last Taken ?Type ibuprofen 600 mg tablet 600 mg PO Q6H PRN PRN pain #20 12/11/23 12/18/23 Rx TABLETS ondansetron 4 mg disintegrating 4 mg PO Q8H PRN PRN Nausea #10 tabs 12/11/23 Unknown Rx tablet oxycodone-acetaminophen 5 mg-325 1 tab PO Q8H PRN pain 3 days #12 12/11/23 Unknown Rx mg tablet (Percocet) tabs tramadol 50 mg tablet 50 mg PO TID PRN pain 12/16/23 Unknown History trazodone 50 mg tablet 100 mg PO QHS PRN sleep 12/16/23 12/18/23 History Allergy/AdvReac Type Severity Reaction Status Date / Time No Known Allergies Allergy Verified 12/19/23 11:21 Surgical History History of wisdom tooth extraction Social History Smoking Status: Never smoker Review of Systems (Anesthesia) ROS Narrative System reviewed and no additional complaints, except as documented.
--- NOTE | 2023-12-19 12:13 | PCM.HP.STD ---
HPI - General HPI Narrative MOE FIELD, is a 38 M who presents for right clavicle ORIF. no changes to h and p. right clavicle marked. slight delay due to add on case. should still proceed this afternoon. ok with block. RAB, post op instructions and narcotic counselling done. ok to proceed. answered a few more questions. MR#: [id number] Acct: [id number] Name: MOE FIELD Rep #: [id number] : 1985 Provider: Dr. Hernan Victoria MD Age/Sex: 38/M Location: [facility] [place] [facility] [place] Status: Signed Intake Vital Signs 12/10/2418:35 Height 5 ft 10 in Intake Visit Reasons: RIGHT CLAVICLE Chief Complaint: injury on 12/10 Accompanied by: Is patient in pain?: Yes Pain scale (1-10): 5 Allergies No Known Allergies Allergy (Verified 12/11/23 19:35) Medications ?Medication ?Instructions ?Recorded ?Confirmed ?Type doxycycline monohydrate 100 mg 100 mg PO BID #28 caps 10/02/19 12/16/23 Rx capsule ibuprofen 600 mg tablet 600 mg PO Q6H PRN PRN pain #20 12/11/23 12/16/23 Rx TABLETS ondansetron 4 mg disintegrating 4 mg PO Q8H PRN PRN Nausea #10 tabs 12/11/23 12/16/23 Rx tablet oxycodone-acetaminophen 5 mg-325 1 tab PO Q8H PRN pain 3 days #12 12/11/23 12/16/23 Rx mg tablet (Percocet) tabs tramadol 50 mg tablet 50 mg PO TID PRN 12/16/23 12/16/23 History trazodone 50 mg tablet 100 mg PO QHS PRN 12/16/23 12/16/23 History PFSH Social History Smoking Status: Former smoker HPI RIGHT CLAVICLE Details: This documentation accurately reflects the service provided and the decisions made by me, Dr. Hernan Victoria MD 12/16/23 [id number]. Part of today?s visit was documented by [ ], acting as scribe. MOE FIELD is a 38 year old M here today for R clavicle fracture. mid shaft. fell 5 days ago. 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 very active patient. has been in a sling. no problems breathing or swallowing. Ortho Exam General General: Yes no acute distress Neurologic: Yes alert and Yes oriented x3 Psychologic: Yes reasonable and appropriate Right Shoulder Skin/Wound: Yes CDI, Yes ecchymosis, No erythema and Yes swelling Testing: Positive Neer's SHOULDER: some mild tenting, no threatening. bruising. nvi to axillary nerve, mru and ain/pin. no pain at ac or sc joint. strong radial pulse. Supplemental Info [facility] [address] [place], [place] [address] Clavicle MR#: [id number] Acct: [id number] Name: MOE FIELD Rep #: [id number] : 1985 M 38 From: Augie Alcala MD PCP: Care Physician,No Primary Status: REG ER Study: Clavicle Date of Exam: 12/11/23 Exam# [id number] Ordering Dr: Reji Hoff MASTER WELDER-C STUDY: X-RAY - RIGHT CLAVICLE REASON FOR EXAM: Male, 38 years old. FX TECHNIQUE: 2 view(s) of the clavicle. COMPARISON: None. FINDINGS: Comminuted displaced and a fracture of the mid right clavicle with a 2.6 cm distracted butterfly fragment directed caudal. Normal acromioclavicular articulation. Normal visualized sternoclavicular articulation. Normal visualized pulmonary apex. RAD/Clavicle IMPRESSION: Comminuted angulated displaced and distracted fractures of the mid right clavicle. Electronically Signed: Augie Alcala MD at 20:50 EDT , comminuted midshaft clavicle fracture. Coding Level of Care Code Off vis,new,level 3 Diagnoses Clavicular fracture S42.009A Assessment and Plan Assessment and Plan (1) Clavicular fracture: Status: Acute Plan: 38 yr M with a midshaft clavicle fracture, with mild angulation, comminution and shortening. Explained pros and cons risks and benefits of non op. vs ORIF with superior plating. Generally the risk of delayed or nonunion is higher with nonoperative treatment. Patient is a non-smoker no diabetes and no anticoagulation. There is a risk of a droopy shoulder easy fatigability as well as some shortening of the upper extremity with nonoperative follow-up nonoperative treatment avoids the risks of surgery such as infection pain stiffness bleeding plate irritation plate breakage neurovascular injury damage to the lung or other injuries or VTE or . Patient understands wished to go ahead with surgery in the form of right clavicle open reduction internal fixation. I also explained the postoperative recovery associated with this. Patient understands no further questions or concerns. Pros and cons risks and benefits were discussed with the patient including but not limited to infection, pain, stiffness, bleeding, damage to surrounding structures, neurovascular injury, recurrence or retear, failure or wear of hardware or fixation, instability, fracture, deep vein thrombosis and pulmonary embolism, anesthetic risks, , patient dissatisfaction, need for further surgery and other risks. Patient understood and wished to proceed with surgery, and signed the informed consent documentation. PFSH Medical History Alcohol use Restless legs Non-smoker Home Medications ?Medication ?Instructions ?Recorded ?Last Taken ?Type ibuprofen 600 mg tablet 600 mg PO Q6H PRN PRN pain #20 12/11/23 12/18/23 Rx TABLETS ondansetron 4 mg disintegrating 4 mg PO Q8H PRN PRN Nausea #10 tabs 12/11/23 Unknown Rx tablet oxycodone-acetaminophen 5 mg-325 1 tab PO Q8H PRN pain 3 days #12 12/11/23 Unknown Rx mg tablet (Percocet) tabs tramadol 50 mg tablet 50 mg PO TID PRN pain 12/16/23 Unknown History trazodone 50 mg tablet 100 mg PO QHS PRN sleep 12/16/23 12/18/23 History Allergy/AdvReac Type Severity Reaction Status Date / Time No Known Allergies Allergy Verified 12/19/23 11:21 Surgical History (Updated 12/17/23 @ 11:21 by Lakisha Ham) History of wisdom tooth extraction Social History Smoking Status: Never smoker Vital Signs Vital Signs Vital Signs: 12/19/23 11:25 12/19/23 11:25 12/19/23 12:11 Temperature 98 F 98 F Temperature Source Temporal Pulse Rate 55 L 55 L Respiratory Rate 16 16 Respiratory Pattern Normal Blood Pressure 131/83 H 131/83 H Blood Pressure Mean 99 Blood Pressure Source Monitor Blood Pressure Position Sitting Blood Pressure Location Left Arm Pulse Ox 100 100 Oxygen Delivery Method Room Air Weight Weight: 174 lb 2.643 oz Body Mass Index (BMI) 25.0
[2023-12-19] MEDS: Cefazolin 2 GM in 0.9% Normal Saline (100mL Bag) 100 ML IV (13:46)
--- NOTE | 2023-12-19 14:15 | RAD_ITS ---
STUDY: X-RAY - RIGHT CLAVICLE REASON FOR EXAM: Male, 38 years old. RIGHT CLAVICLE ORIF TECHNIQUE: Single fluoroscopic view of the right clavicle. Total fluoroscopic time 2 seconds. One image. Fluoroscopic dose 0.18 mGy. COMPARISON: Prior study dated: 2623 FINDINGS: Patient is now status post plate and screw fixation of the right clavicular fracture. Alignment is anatomic. RAD/Clavicle IMPRESSION: Fluoroscopic guidance for placement and screw fixation of the right clavicle fracture. Please refer to operative report for further information. Electronically Signed: Jan Hunter MD at 3:16 EDT ,
--- NOTE | 2023-12-19 14:52 | EX.PCM.DISCH ---
Discharge Instructions Diet Discharge Diet: No restrictions Activity Ice area for (Minutes): 10 Weight Bearing Status: No weight bearing Lifting Restrictions: no lifting over 1 pound Additional Activity Instructions:: pendulums only, hand wrist elbow ROM ok Dressing / Incision Call your doctor if your incision/area has: Continuous Slow Oozing, Sudden Increased Bleeding, Increased Pain/ Swelling, Increased Redness, Foul Smelling Discharge and Swelling at the incision site Call your doctor if you observe: Fever of 101 or Higher, Coldness, Increased Pain and Numbness or Tingling Change Dressing in: leave in place till F/U Cleanse incision/area with: Do not get Incision Wet Follow Up Care Please Follow Up With: Hernan Victoria MD When: friday or in 2 weeks Test Results: Test results from this visit will be discussed in further detail at your follow-up appointment, if applicable. Discharge Plan Admission Attending Provider: Hernan Victoria Primary Care Provider: Care Physician,Sabrina Primary Instructions Print Language: Turkish Discharge Orders/Prescriptions Prescriptions: New oxycodone-acetaminophen [Endocet] 5-325 mg tablet 1 - 2 tab PO Q4H MDD 6 PRN (Reason: pain) 5 Days Qty: 20 0RF No Action tramadol 50 mg tablet 50 mg PO TID PRN (Reason: pain) trazodone 50 mg tablet 100 mg PO QHS PRN (Reason: sleep) oxycodone-acetaminophen [Percocet] 5-325 mg tablet 1 tab PO Q8H PRN (Reason: pain) 3 Days Qty: 12 0RF ibuprofen 600 mg tablet 600 mg PO Q6H PRN PRN (Reason: pain) Qty: 20 0RF ondansetron 4 mg tablet,disintegrating 4 mg PO Q8H PRN PRN (Reason: Nausea) Qty: 10 0RF Referrals / Follow Up: Care Physician,No Primary [Primary Care Provider] - Disposition Disposition (needs filled in before D/C Order can be placed): Home, Self Care
--- NOTE | 2023-12-19 14:54 | PCM.OPRPT ---
Problems Associated Problem List Diagnoses (1) Clavicular fracture: Report of Operation Pre-Operative Diagnosis: R clavicle fracture Post-Operative Diagnosis: same Surgery/Procedure Performed:: R clavicle ORIF Surgeon: Hernan Victoria Type of Anesthesia: Block,Regional and General Anesthesiologist: Delfin Auguste Estimated Blood Loss (mL): 20 Description of Procedure: Patient brought to the operating room theater. Placed supine on the beachchair positioner. The general anesthesia induced. 2 g IV Ancef administered prior to the start of the procedure. Patient sat up 45 degree angle bed turned 90 degrees. Block given preoperatively. Upper extremity clavicle area prepped and draped in the usual sterile fashion with chlorhexidine-based prep solution allowing over 3 minutes drying time prior to draping. Arthrex arm shultz was used to the patient's right side all bony prominences padded. SCDs on the legs. Preoperative timeout performed confirm the site patient and the surgery. Began by making a longitudinal incision over the subcutaneous aspect of the clavicle carried the dissection down through skin and subcutaneous tissue. Achieved meticulous hemostasis. Platysma and fascia incised in line with the skin incision dissection carried down on the superior aspect of the bone. The midshaft clavicle fracture identified with butterfly fragment inferiorly. Periosteum and fracture hematoma removed from the fracture site as well as the superior aspect of the clavicle. I selected a Synthes precontoured 2.7 mm locking clavicle plate placed this superiorly on the bone. Use fracture reduction forceps to clamp this superiorly onto the clavicle with good reduction at the fracture site. I used a 2.7 mm cortical screw on both sides of fracture to secure the plate down to the bone. I then used subsequently 4 locking screws on each side of the fracture for a total of 10 screws. This achieved good reduction and position of the plate and the fracture. I took intraoperative graphs to confirm the plate and screw length was appropriate. These were saved onto the system there irrigation performed followed by closure of the fascial layer with #1 Vicryl sutures subcutaneous tissue with 2-0 Vicryl suture and skin with 3-0 Monocryl. Skin cleaned with wet dry dressing followed application of Steri-Strips and silver Mepilex border dressing and a sling for the upper extremity. Patient woken up from the general anesthetic transferred off the operating table and taken postanesthetic care unit in stable condition. All sponge needle instrument counts were correct. Plan to the patient discharged home according to day surgery criteria follow-up in the office appointment made for this coming Friday. Okay for pendulum exercises as well as hand wrist and elbow exercises no heavy lifting over 1 pound. NA Tian retracting, positioning, dressing Grafts/Implants Used: synthes 2.7mm locking clavicle plate Procedure Start Time: 13:57 Procedure Stop Time: 14:44 Complications none Admit VTE Documentation VTE Present on Admission: No VTE Mechan Device Prophylaxis: SCD's VTE Pharm Prophylaxis ordered?: No Reason prophylaxis not ordered:: Treatment Not Indicated Procedures Musculoskeletal [id number]-29xxx: Other Procedure See Report
--- NOTE | 2023-12-19 14:58 | PCM.POST.ANE ---
Anesthesia: Postop Eval I Current Vital Signs Temperature: 97.1 F Pulse Rate: 78 Blood Pressure: 122/73 Respiratory Rate: 16 Pulse Ox: 91 Oxygen Delivery Method: Room Air Assessment Airway patent: Yes Spontaneous unlabored respirations: Yes Mental status: Awake nausea: No Vomiting: No Anesthesia Complication: No Fluid Hydration Crystalloid volume administer (ml): 700 Total IV fluid infused: 700 Progress Note Anesthesia document: Postop Eval 1 completed: Yes
--- NOTE | 2023-12-19 23:10 | POSTOPAN2_ITS ---
Anesthesia Postop Eval I Sum Postop Eval Completion status Anesthesia document: Postop Eval 1 completed: Yes Anesthesia Postop Eval I Summary Anesthesia Postop Eval I Summary: Anesthesia Postop Eval I: Assessment Summary Airway patent Yes 12/19/23 15:00 TARIFF [email or web address] Spontaneous unlabored Yes 12/19/23 15:00 TARIFF [email or web address] respirations Mental status Awake 12/19/23 15:00 TARIFF [email or web address] nausea No 12/19/23 15:00 TARIFF EXPERT.[email or web address] Vomiting No 12/19/23 15:00 TARIFF [email or web address] Anesthesia Postop Eval I: Fluid Summary Crystalloid volume administer 700 12/19/23 15:00 TARIFF [email or web address] (ml) Colloids volume administered ( ml) Blood Product volume administered (ml) Total IV fluid infused 700 12/19/23 15:00 TARIFF [email or web address] Anesthesia Postop Eval I: Summary Notes Anesthesia Complication No 12/19/23 15:00 TARIFF [email or web address] Anesthesia Complication Comment: Post-operative progress note Anesthesia: Postop Eval II Evaluation Mental status: Awake and Calm Pain Level: 1 nausea: No Vomiting: No Complications Anesthesia Complication: No
--- NOTE | 2023-12-19 23:10 | PCM.POSTANE2 ---
Anesthesia Postop Eval I Sum Postop Eval Completion status Anesthesia document: Postop Eval 1 completed: Yes Anesthesia Postop Eval I Summary Anesthesia Postop Eval I Summary: Anesthesia Postop Eval I: Assessment Summary Airway patent Yes 12/19/23 15:00 MOTEL [email or web address] Spontaneous unlabored Yes 12/19/23 15:00 MOTEL [email or web address] respirations Mental status Awake 12/19/23 15:00 MOTEL [email or web address] nausea No 12/19/23 15:00 MOTEL MANAGER.JDEF Vomiting No 12/19/23 15:00 MOTEL MANAGER.JDEF Anesthesia Postop Eval I: Fluid Summary Crystalloid volume administer 700 12/19/23 15:00 MOTEL [email or web address] (ml) Colloids volume administered ( ml) Blood Product volume administered (ml) Total IV fluid infused 700 12/19/23 15:00 MOTEL MANAGER.JDEF Anesthesia Postop Eval I: Summary Notes Anesthesia Complication No 12/19/23 15:00 MOTEL MANAGER.JDEF Anesthesia Complication Comment: Post-operative progress note Anesthesia: Postop Eval II Evaluation Mental status: Awake and Calm Pain Level: 1 nausea: No Vomiting: No Complications Anesthesia Complication: No
== END 2023-12-19 16:40 | disposition home or self-care (01) ==
LOC: SDC 10:43 → AC 10:44
PROVIDERS: Referring Provider Orthopaedic Surgery Sports Medicine; Visit Provider Orthopaedic Surgery Sports Medicine
PROC: (CPT 23515; principal; 2023-12-19 11:55)
DX: S42.021A Displaced fracture of shaft of right clavicle, initial encounter for closed fracture (principal); W19.XXXA Unspecified fall, initial encounter; Y93.66 Activity, soccer
CPT/HCPCS: 23515; 00450; 64415; 73000; 76000; C1713; J2405

== ENCOUNTER 2024-02-06 16:30 | Outpatient (RCR) | payer OTHER, SELFPAY ==
--- NOTE | 2024-01-06 09:12 | HP.PTEVAL_ITS ---
Patient's Visit Information Visit Information Visit Information: MOE FIELD is a 38 year old M referred to Physical Therapy by Dr. Hernan Victoria MD with a diagnosis of R clavicle ORIF. Date of Evaluation: 01/06/24 Physical Therapist: Eliazar Justice DPT Visit Plan Frequency: 2x /Week Duration: 6 Weeks Plan: Start with progressive AAROM and PROM of R shoulder, limited to 90deg until given permission from physician to progress. Using [facility] protocol to guide rehab. Subjective Subjective: Pt. is here today for his initial evaluation with R clavicle ORIF. Pt. reports falling while playing soccer. DOS: 12/19/23. Pt. arrives in sling and reports minimal pain. He has been doing pendulums with good tolerance. Pt. is allowed to be out of sling for exercises and pendulums. pt. denies N/T. He does occasionally get pins and needle like feeling along his incision, but infrequent. Pt. is sleeping okay. Pt. is able to move his arm without much discomfort. 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 He does have some issues with sleeping, unable to get comfortable. Pt. is hopeful to resume all previous activities including running, and playing sports. Pain R clavicle: Pain Intensity (Out of 10): 0 Pain Intensity Range: 0 and 2 Objective Objective: POSTURE: pt. has slight slouched posture, R UE in guarded positioning. Pt. is able to correct with VC/TCing. PALPATION: Pt. has good healing incision, no signs of infection. NEURO: Pt. has normal DTR of B biceps and triceps ROM: L shoulder: full ROM without issues. R shoulder: AROM: elbow and wrist full motions. PROM: R shoulder: flexion 90deg , abd 90deg, scaption 90deg, ER full motion. (Pt. could have went further with all of his motions) MMT: LUE: 5/5 throughout. RUE: DNT due to recent surgery Balance/Special Test Scores Quick DASH Score: 45.4525 Goals Goal 1:: LTG: Pt. to be I with HEP. Goal Time Frame: 4-6 Weeks Goal 2:: STG: Pt. to have full AAROM of R shoulder. Goal Time Frame: 2-4 Weeks Goal 3:: LTG: Pt. to have full AROM of R shoulder without increase in symptoms. Goal Time Frame: 4-6 Weeks Goal 4:: LTG: Pt. to have increased R shoulder strength symmetrical to L shoulder. Goal Time Frame: 6-8 Weeks Goal 5:: LTG: Pt. to resume all recreational and sporting activities without increase in R shoulder pain. Goal Time Frame: 6-8 Weeks Rehabilitation Potential Physical Therapy Diagnosis: Pt. has signs and symptoms consistent with R clavicle ORIF. Pt. is overall doing very well. He does have some hypomobility, but did not have restricted movements, I stopped prior to tightness. He would benefit from PT to progress end range of motion and eventual strengthening. Rehabilitation Potential: Excellent Anticipated Interventions Patient/Client Instruction: Educate patient on: Condition, Plan of Care, Risk Factors and Benefits of Fitness Program For the Purpose of:: To facilitate caregiver knowledge, To improve self management, To prevent re-injury, To improve ability to perform tasks related to life management and To improve tolerance to ADL's Therapeutic Exercise to Include: Strength training, Power training, Endurance training, Postural training, Gait and locomotor training, Passive ROM, Active ROM and Scapular Strength/Stabilization For the Purpose of:: To decrease pain, To increase ROM, To improve nutrient delivery to tissue, To increase oxygenation perfusion, To improve muscle performance and motor function, To improve ability to perform ADL's, To increase tolerance to activity/condition/position, To improve performance and independence with ADL's, To decrease level of supervision to perform tasks, To improve ability of physical actions for home/community/work/leisure and To improve health of tissue Text: Thank you for the opportunity to evaluate your patient. For Medicare and Medicare HMO plans, please review the plan of care and approve it. It will need to be FAXED BACK to us at [phone] for Medicare purposes. For Medicare only, by signing this I certify the plan of care. Please let me know if there are questions or concerns regarding this plan of care. Physician Signature: Date:
== END 2024-02-06 19:00 | disposition home or self-care (01) ==
LOC: PT 16:30
PROVIDERS: Referring Provider Orthopaedic Surgery Sports Medicine; Visit Provider Orthopaedic Surgery Sports Medicine
DX: S42.009D Fracture of unspecified part of unspecified clavicle, subsequent encounter for fracture with routine healing (principal)
CPT/HCPCS: 97110; 97161

== ENCOUNTER → 2024-06-09 | Outpatient (CLI) | payer OTHER, SELFPAY ==
[2024-06-09 20:25] LABS: Anion Gap 11 (5-15); BUN 20 mg/dL (4-19); BUN/Creat Ratio 18.9 RATIO (10-20); Calcium,Total 9.8 mg/dL (7.6-11.0); Carbon Dioxide 28.4 mmol/L (21.0-32.0); Chloride 102 mmol/L (98-108); Creatinine, Serum 1.04 mg/dL (0.70-1.20); EST Glomerular Filtration Rate 93 (>60); Glucose 90 mg/dL (70-99); Magnesium 2.2 mg/dL (1.5-2.2); Potassium 4.3 mmol/L (3.3-5.1); Sodium Level 141 mmol/L (133-145)
[2024-06-09 20:35] LABS: Cholesterol 183 mg/dL (<=200); High Density Lipoprotein 75 mg/dL; Low Density Lipoprotein Calc. 82 mg/dL; Triglycerides 131 mg/dL; Very Low Density Lipoprotein 26 mg/dL (5-40); cholesterol:hdl ratio screen 2.45
== END | disposition home or self-care (01) ==
LOC: LAB 13:57
PROVIDERS: PCP Family Medicine; Referring Provider Internal Medicine Cardiovascular Disease; Visit Provider Internal Medicine Cardiovascular Disease
DX: I49.3 Ventricular premature depolarization (principal)
CPT/HCPCS: 36415; 80048; 80061; 83735; 84443

== ENCOUNTER → 2024-07-20 | Outpatient (CLI) | payer OTHER, SELFPAY ==
--- NOTE | 2024-07-20 14:55 | ECHOD_ITS ---
Reason For Study Reason For Study: Arrhythmia Procedure This was a 2D Doppler, Color Flow transthoracic echocardiogram. Exam performed in department. Left Ventricle Normal LV size. Left ventricular systolic function is normal. The left ventricular ejection fraction is 65 %. No regional wall motion abnormalities noted. Right Ventricle Normal RV size. Normal systolic function. Atria Normal left atrium. Normal right atrium. Mitral Valve Normal mitral valve. Tricuspid Valve Normal tricuspid valve. Mild tricuspid valve insufficiency. Pulmonary artery systolic pressure is 24 mmHg. Aortic Valve Trisinus/trileaflet aortic valve. Pulmonic Valve Normal pulmonic valve. Great Vessels Normal aortic root. The pulmonary artery is normal size. Inferior vena cava collapse with respiration. Pericardium/Pleural No pericardial effusion. MMode/2D Measurements & Calculations LVIDd: 5.0 cm IVSd: 0.91 cm Ao root diam: 3.0 cm LVIDs: 3.7 cm LVPWd: 0.98 cm RVDd: 4.1 cm FS: 26.8 % LAV(MOD-bp): 36.5 ml LVAd ap4: 39.8 cm2 SV(MOD-sp4): 89.8 ml LAV(MOD-bp) Indexed: 18.2 ml/m2 LVLd ap4: 9.2 cm SI(MOD-sp4): 44.7 ml/m2 LAV(MOD-sp2): 41.9 ml EDV(MOD-sp4): 141.4 ml LAV(MOD-sp4): 32.7 ml EDV(sp4-el): 145.9 ml LVAs ap4: 21.3 cm2 LVLs ap4: 7.6 cm ESV(MOD-sp4): 51.6 ml ESV(sp4-el): 51.0 ml EF(MOD-sp4): 63.5 % EF(sp4-el): 65.1 % SV(sp4-el): 94.9 ml LA A4 area: 13.8 cm2 LA dimension(2D): 4.1 cm RA A4 area: 14.7 cm2 TAPSE: 2.8 cm Time Measurements MV dec time: 0.20 sec Doppler Measurements & Calculations MV E max isaak: 98.2 cm/sec Lat Peak E' Isaak: 19.3 cm/sec Med Peak E' Isaak: 10.5 cm/sec MV A max isaak: 77.3 cm/sec E/E' lat: 5.1 E/E' med: 9.3 MV E/A: 1.3 Ao V2 max: 153.0 cm/sec LV V1 max: 138.9 cm/sec MV dec slope: 493.5 cm/sec2 Ao max P.4 mmHg LV V1 max P.7 mmHg Ao V2 mean: 103.4 cm/sec Ao mean P.8 mmHg Ao V2 VTI: 29.8 cm PA V2 max: 116.5 cm/sec TR max isaak: 232.6 cm/sec TR max P.6 mmHg ECHO/Echo Complete Interpretation Summary Normal LV size. Left ventricular systolic function is normal. The left ventricular ejection fraction is 65 %. Pulmonary artery systolic pressure is 24 mmHg. Ordering Physician: Ciro Blas Referring Physician: Ronald Guerrero Performed By: Jaja Olson, BARRETT, RVT
== END | disposition home or self-care (01) ==
LOC: CVS 14:54
PROVIDERS: PCP Family Medicine; Referring Provider Internal Medicine Cardiovascular Disease; Visit Provider Internal Medicine Cardiovascular Disease
DX: I49.3 Ventricular premature depolarization (principal)
CPT/HCPCS: 93306

== ENCOUNTER → 2025-03-16 | Outpatient (CLI) | payer OTHER, SELFPAY ==
--- OUTSIDE RECORDS SUMMARY | 2025-03-16 15:14 | XMS RPT_ITS | CCD ---
Author Organization [facility] CliniSyny Care Team Providers Care Steeple Jack Name Role Phone DO Alicia Mathis Primary Care Provider [phone] DO Alicia Mathis Referring Provider [phone] DO Alicia Mathis Other Provider Dr. Nghai Shields Attending Provider Care Physician, No Primary Primary Care Provider Unavailable Care Physician, No Primary Referring Provider Un available Hernan Victoria MD Attending Provider Wan RHODES, Dr. Tanner Attending Provider Ronald Guerrero MD Primary Care Provider [phone] Ronald Guerrero MD Referring Provider [phone] Ciro Blas MD Referring Provider Care Physician, No Primary Primary Care Unava ilable Hernan Victoria Attending Unavailable Care Physician, No Primary Referring Unava ilable Care Physician, No Primary Primary Care Unava ilable Wan, [place] Attending Unavailable Care Physician, No Primary Primary Care Unava ilable Hernan Victoria Attending Unavailable Care Physician, No Primary Referring Unava ilable Care Physician, No Primary Primary Care Unava ilable Wan, [place] Attending Unavailable Wan, [place] Referring Unavailable Wan, Ciro Attending Unavailable Cesar, Davidon Primary Care Unavailable Hernan Victoria Attending Unavailable Hernan Victoria Referring Unavailable Care Physician, No Primary Primary Care Unava ilable Wan, [place] Referring Unavailable Cesar, Chalon Primary Care Unavailable Wan, Ciro Attending Unavailable Cesar, Chalon Primary Care Unavailable Cesar, Chalon Referring Unavailable Wan, Ciro Attending Unavailable Wan, [place] Attending Unavailable Cesar, Chalon Primary Care Unavailable Cesar, Chalon Primary Care Unavailable Mollison, Hernan Attending Unavailable Care Physician, No Primary Referring Unava ilable Ciro Blas Attending Unavailable Ronald Guerrero Primary Care Unavailable Care Physician, No Primary Referring Unava ilable Hernan Victoria Attending Unavailable Care Physician, No Primary Primary Care Unava ilable Ciro Blas Attending Unavailable Care Physician, No Primary Primary Care Unava ilable Care Physician, No Primary Referring Provider Un available Hernan Victoria MD Attending Physician [phone] Ronald Guerrero MD Primary Care Physician [phone] Wan RHODES, Dr. Tanner Attending Physician [phone] Medications Current Medications Medication Drug Class(es) Dates Sig (Normalized) Sig (Original) Multivitamin tablet (5 sources) Start: 02-05-2024 Start: 02-05-2024 Multivitamin t ablet Active 1 {tbl} PO daily February 05, 2024 1:00am traZODone hydrochloride 50 mg oral tablet (5 sources) Serotonin Reuptake Inhibitor Start: 12-16-2023 take 2 tablets by mouth at bedtime as needed for sleep Completed/Discontinued Medications Medication Drug Class(es) Dates Sig (Normalized) Sig (Original) acetaminophen 325 mg / oxyCODONE hydrochloride 5 mg oral tablet (10 sources) Opioid Agonist Start: 12-19-2023 End: 12-22-2023 Oxycodone-Acetamino phen (Endocet) 5-325 mg tablet Discontinued 1 - 2 {tbl} PO Q4H as needed for pain 20 5 0 December 19, 2023 December 22, 2023 2:24pm Fracture of clavicle Start: 12-11-2023 End: 12-22-2023 Oxycodone-Acetaminophen (Per cocet) 5-325 mg tablet Discontinued 1 {tbl} PO Q8H as needed for pain 12 3 0 December 11, 2023 December 22, 2023 2:24pm Fracture of clavicle calcium carbonate 1250 mg oral tablet (5 sources) Start: 02-05-2024 End: 06-09-2024 Calcium Carbonate (Oyster Shell Calcium 500) 500 mg calcium (1,250 mg) tablet Discontinued 500 mg PO daily February 05, 2024 1:00am June 09, 2024 1:29pm doxycycline monohydrate 100 mg oral capsule (10 sources) Tetracycline-class Drug Start: 10-02-2019 End: 12-17-2023 take 1 capsule by mouth twice daily Doxycycline Monohydrate 100 MG capsule Discontinued 100 mg PO TWICE A DAY October 02, 2019 12:00am December 17, 2023 11:17am ibuprofen 600 mg oral tablet (5 sources) Nonsteroidal Anti-inflammatory Drug Start: 12-11-2023 End: 02-05-2024 take 1 tablet by mouth every six hours as needed for pain Ibuprofen 600 mg tablet Discontinued 600 mg PO EVERY 6 HOURS NEEDED as needed for pain 20 December 11, 2023 12:00am February 05, 2024 10:29am ondansetron 4 mg disintegrating oral tablet (5 sources) Serotonin-3 Receptor Antagonist Start: 12-11-2023 End: 02-05-2024 take 1 tablet by mouth every eight hours as needed for nausea Ondansetron 4 mg tablet,disintegrat ing Discontinued 4 mg PO EVERY 8 HOURS NEEDED as needed for Nausea 10 December 11, 2023 12:00am February 05, 2024 10:29am traMADol hydrochloride 50 mg oral tablet (5 sources) Opioid Agonist Start: 12-16-2023 End: 12-22-2023 take 1 tablet by mouth three times daily as needed for pain Tramadol 50 mg tablet Discontinued 50 mg PO THREE TIMES A DAY as needed for pain December 16, 2023 12:00am December 22, 2023 2:24pm Problems Problem Classification Problem Date Documented Da te Episodic/Chronic Abdominal pain (10 sources) Abdominal pain; Translations: [Unspecified abdominal pain] 10-03-2019 Episodic Cardiac dysrhythmias (9 sources) Multiple premature ventricular complexes; Translations: [Ventricular premature depolarization] Onset: 07-25-2024 05-05-2024 Chronic Fracture of upper limb (9 sources) Fracture of clavicle; Translations: [Fracture of unspecified part of unspecified clavicle, initial encounter for closed fracture] Onset: 12-23-2024 12-19-2023 Episodic Other hereditary and degenerative nervous system conditions (5 sources) Restless legs; Translations: [Restless legs syndrome] 05-05-2024 Chronic Other infections; including parasitic (10 sources) Lyme disease; Translations: [Lyme disease, unspecified] 10-02-2019 Episodic Residual codes; unclassified (5 sources) Insomnia; Translations: [Insomnia, unspecified] 05-05-2024 Episodic Residual codes; unclassified (5 sources) Current drinker; Translations: [Other specified health status] 05-05-2024 Episodic Comment on above: couple drinks per we ek Results Test Name Value Interpretation Reference Range Facility Clavicleon 12-23-2024 Clavicle [facility] Imaging Services [address] [place] [address] Clavicle MR#: [id number] Acct: [id number] Name: MOE FIELD Rep #: [id number] : 1985 M 39 From: Kimani Bangura PCP: Dr. Ronald Guerrero MD Status: DEP AMB Study: Clavicle Date of Exam: 12/23/24 Exam# [id number] Ordering Dr: Hernan Victoria MD PROCEDURE: CLAVICLE 12/23/2024 REASON FOR EXAM: FOLLOW UP TECHNIQUE: Procedure Code: RADCL Modality: DX Procedure: CLAVICLE COMPARISON: None provided. RAD/Clavicle IMPRESSION: Plate and screws are seen transfixing a healed or healing fracture of the right mid clavicle. Satisfactory alignment is seen. Mature areas of callus formation also noted. No evidence of metallic fracture or screw loosening. Mild degenerative changes also seen of the right acromioclavicular joint. Reading Location: [place] [address] CC: Dr. Ronald Guerrero MD; Dr. Hernan Victoria MD Loan And Credit Manager: Signed Normal [facility] Orthopedic Visit Reporton Orthopedic Visit Report [facility] [address] [place] [address] [address] [place] [address] OFFICE VISIT Date of Service: 12/23/24 MR#: [id number] Acct: [id number] Name: MOE FIELD Rep #: [id number] : 1985 Provider: Dr. Hernan tam MD Age/Sex: 39/M Location: [facility] Status: Signed Intake Vital Signs 12/19/23 11:25 06/09/24 13:21 Height 5 ft 10 in 5 ft 10 in Intake Visit Reasons: RIGHT CLAVICLE Chief Complaint: Right Clavicle Follow-Up Accompanied by: Self Is patient in pain?: No Allergies No Known Allergies Allergy (Verified 12/23/24 08:28) Medications ???Medication ???Instructions ???Recorded ???Confirmed ???Type trazodone 50 mg tablet 100 mg PO QHS PRN sleep 12/16/23 1 History multivitamin 1 tab PO QDAY 02/05/24 12/23/24 Hi story PFSH Medical History History of broken collarbone Insomnia PVCs (premature ventricular contractions) Lyme disease Alcohol use Restless legs Surgical History History of wisdom tooth extraction Family History Aunt Myocardial infarction Brother Hypertension Social History Smoking Status: Never smoker alcohol intake: current alcohol intake frequency: a few times a week Alcohol type: beer HPI RIGHT CLAVICLE Details: This documentation accurately reflects the service provided and the decisions made by me, Dr. Hernan Victoria MD 12/23/24 0800. Part of today???s visit was documented by [ ], acting as scribe. MOE FIELD is a 39 year old M here today for FU R clavicle ORIF. NEED XR. 9 months out from surgery doing well clavicle feels strong he is back to playing soccer. Occasionally there is some discomfort there when he is wearing a backpack. The numb patch is improving it is only isolated to the incision now. Supplemental Info X-rays taken 2 views the right clavicle demonstrate the fracture to be well aligned and healed. Coding Level of Care Code Off vis,est,level 3 Diagnoses Clavicular fracture S42.009A Assessment and Plan Assessment and Plan (1) Clavicular fracture: Status: Inactive Plan: 39-year-old man 9 months following up right clavicle open reduction internal fixation. The patient is doing well and incision has mild numbness. Mild pain with wearing a backpack overall things are improving the fracture appears well aligned and healed patient can continue to be activities as tolerated. We discussed the pros and cons risks and benefits of hardware removal and the patient is happy to carry on nonsurgically at this point. Orders: Orders Clavicle Today S42.009A - Fracture of unspecified part of unspecified clavicle, initial encounter for closed fracture Ortho Exam General General: Yes no acute distress Neurologic: Yes alert and Yes oriented x3 Psychologic: Yes reasonable and appropriate Right Shoulder Skin/Wound: Yes CDI, Yes healed, No ecchymosis, No erythema and No swelling Testing: Positive AROM-Forward Elevation 0-180 and AROM-External Rotation at side 0-60 SHOULDER: nvi ax, mru and ain/pin. good radial pulse. numbness around incision. no pain to fracture site 12/23/24 0847 Date Hernan Victoria MD Cosigner Signature: Date (if applicable) CC: Normal [facility] Echo Completeon 07-20-2024 Echo Complete [facility] [address] [place] [address] Echo Complete 07/20/24 1500 MR#: [id number] Acct: [id number] Name: MOE FIELD Rep #: [id number] : 1985 38 From: Ciro Blas MD Attending Dr: Dr. Ciro Blas MD Status: AL THOMAS Ordering Dr: Ciro Blas MD Date: 07/20/24 Location: [facility] Sex: M C Admitted: Reason For Study Reason For Study: Arrhythmia Procedure This was a 2D Doppler, Color Flow transthoracic echocardiogram. Exam performed in department. Left Ventricle Normal LV size. Left ventricular systolic function is normal. The left ventricular ejection fraction is 65 %. No regional wall motion abnormalities noted. Right Ventricle Normal RV size. Normal systolic function. Atria Normal left atrium. Normal right atrium. Mitral Valve Normal mitral valve. Tricuspid Valve Normal tricuspid valve. Mild tricuspid valve insufficiency. Pulmonary artery systolic pressure is 24 mmHg. Aortic Valve Trisinus/trileaflet aortic valve. Pulmonic Valve Normal pulmonic valve. Great Vessels Normal aortic root. The pulmonary artery is normal size. Inferior vena cava collapse with respiration. Pericardium/Pleural No pericardial effusion. MMode/2D Measurements Calculations LVIDd: 5.0 cm IVSd: 0.91 cm Ao root diam: 3.0 cm LVIDs: 3.7 cm LVPWd: 0.98 cm RVDd: 4.1 cm FS: 26.8 % LAV(MOD-bp): 36.5 ml LVAd ap4: 39.8 cm2 SV(MOD-sp4): 89.8 ml LAV(MOD-bp) Indexed: 18.2 ml/m2 LVLd ap4: 9.2 cm SI(MOD-sp4): 44.7 ml/m2 LAV(MOD-sp2): 41.9 ml EDV(MOD-sp4): 141.4 ml LAV(MOD-sp4): 32.7 ml EDV(sp4-el): 145.9 ml LVAs ap4: 21.3 cm2 LVLs ap4: 7.6 cm ESV(MOD-sp4): 51.6 ml ESV(sp4-el): 51.0 ml EF(MOD-sp4): 63.5 % EF(sp4-el): 65.1 % SV(sp4-el): 94.9 ml LA A4 area: 13.8 cm2 LA dimension(2D): 4.1 cm RA A4 area: 14.7 cm2 TAPSE: 2.8 cm Time Measurements MV dec time: 0.20 sec Doppler Measurements Calculations MV E max isaak: 98.2 cm/sec Lat Peak E' Isaak: 19.3 cm/sec Med Peak E' Isaak: 10.5 cm/sec MV A max isaak: 77.3 cm/sec E/E' lat: 5.1 E/E' med: 9.3 MV E/A: 1.3 Ao V2 max: 153.0 cm/sec LV V1 max: 138.9 cm/sec MV dec slope: 493.5 cm/sec2 Ao max P.4 mmHg LV V1 max P.7 mmHg Ao V2 mean: 103.4 cm/sec Ao mean P.8 mmHg Ao V2 VTI: 29.8 cm PA V2 max: 116.5 cm/sec TR max isaak: 232.6 cm/sec TR max P.6 mmHg ECHO/Echo Complete Interpretation Summary Normal LV size. Left ventricular systolic function is normal. The left ventricular ejection fraction is 65 %. Pulmonary artery systolic pressure is 24 mmHg. Ordering Physician: Ciro Blas Referring Physician: Ronald Guerrero Performed By: Jaja Olson, BARRETT, RVT 07/20/24 172 Date Ciro Blas MD CC: Dr. Ronald Guerrero MD; Dr. Ciro Blas MD Date Dictated: 07/20/24 1500 Date Transcribed: 07/20/241720 Loan And Credit Manager: Signed Normal [facility] Echocardiogram study reportO rdered By: Ciro Blas on 07-20-[address] [facility] [address] [place] [address] Echo Complete 07/20/24 1500 MR#: [id number] Acct: [id number] Name: MOE FIELD Rep #:[id number] : 1985 38 From: Ciro Bangura Attending Dr: Dr. Ciro Blas MD S tatus: REG CLI Ordering Dr: Ciro Blas MD Date: 09/08 Location: [facility] Sex: M C Admitted: Reason For Study Reason For Study: Arrhythmia Procedure This was a 2D Doppler, Color Flow transthoracic echocardiogram. Exam performed in department. Left Ventricle Normal LV size. Left ventricular systolic function is normal. The left ventricular ejection fraction is 65 %. No regional wall motion abnormalities noted. Right Ventricle Normal RV size. Normal systolic function. Atria Normal left atrium. Normal right atrium. Mitral Valve Normal mitral valve. Tricuspid Valve Normal tricuspid valve. Mild tricuspid valve insufficiency. Pulmonary artery systolic pressure is 24 mmHg. Aortic Valve Trisinus/trileaflet aortic valve. Pulmonic Valve Normal pulmonic valve. Great Vessels Normal aortic root. The pulmonary artery is normal size. Inferior vena cava collapse with respiration. Pericardium/Pleural No pericardial effusion. MMode/2D Measurements & Calculations LVIDd: 5.0 cm IVSd: 0.91 cm Ao root diam: 3.0 cm LVIDs: 3.7 cm LVPWd: 0.98 cm RVDd: 4.1 cm FS: 26.8 % LAV(MOD-bp): 36.5 ml LVAd ap4: 39.8 cm2 SV(MOD-sp4): 89.8 ml LAV(MOD-bp) Indexed: 18.2 ml/m2 LVLd ap4: 9.2 cm SI(MOD-sp4): 44.7 ml/m2 LAV(MOD-sp2): 41.9 ml EDV(MOD-sp4): 141.4 ml LAV(MOD-sp4): 32.7 ml EDV(sp4-el): 145.9 ml LVAs ap4: 21.3 cm2 LVLs ap4: 7.6 cm ESV(MOD-sp4): 51.6 ml ESV(sp4-el): 51.0 ml EF(MOD-sp4): 63.5 % EF(sp4-el): 65.1 % SV(sp4-el): 94.9 ml LA A4 area: 13.8 cm2 LA dimension(2D): 4.1 cm RA A4 area: 14.7 cm2 TAPSE: 2.8 cm Time Measurements MV dec time: 0.20 sec Doppler Measurements & Calculations MV E max isaak: 98.2 cm/sec Lat Peak E' Isaak: 19.3 cm/sec Med Peak E' Isaak: 10.5 cm/sec MV A max isaak: 77.3 cm/sec E/E' lat: 5.1 E/E' med: 9.3 MV E/A: 1.3 Ao V2 max: 153.0 cm/sec LV V1 max: 138.9 cm/sec MV dec slope: 493.5 cm/sec2 Ao max P.4 mmHg LV V1 max P.7 mmHg Ao V2 mean: 103.4 cm/sec Ao mean P.8 mmHg Ao V2 VTI: 29.8 cm PA V2 max: 116.5 cm/sec TR max isaak: 232.6 cm/sec TR max P.6 mmHg ECHO/Echo Complete Interpretation Summary Normal LV size. Left ventricular systolic function is normal. The left ventricular ejection fraction is 65 %. Pulmonary artery systolic pressure is 24 mmHg. Ordering Physician: Ciro Blas Referring Physician: Ronald Guerrero Performed By: Jaja Olson, BARRETT, RVT 07/20/24 1721 Date _ Ciro Blas MD CC: Dr. Ronald Guerrero MD; Dr. Ciro Blas MD ~ Date Dictated: 07/20/24 1500 Date Transcribed: 07/20/24 172 Loan And Credit Manager: Signed [facility] Work Phone: 12 Lead EKG performed by [facility] on 06-09-2024 12 Lead EKG performed by [facility] [address] [place] [address] 12 Lead EKG performed by [facility] 06/09/24 1321 MR#: [id number] Acct: [id number] Name: MOE FIELD Rep #: [id number] : 1985 38 From: Ciro Blas MD Attending Dr: Dr. Ciro Blas MD Status: DEP A MB Ordering Dr: Ciro Blas MD Date: 06/09/24 Location: [place] Sex: M C Admitted: BMS/12 Lead EKG performed by [facility] ECG Report Interpretation ---Sinus Bradycardia -RSR(V1) -nondiagnostic. PROBABLY NORMALElectronically signed on 06/10/2024 at 15:54 by Ciro Blas [employer] Version [id number] 06/10/24 1557 Date Ciro Blas MD CC: Dr. Ronald Guerrero MD Date Dictated: 06/09/24 1321 Date Transcribed: 06/09/241320 Loan And Credit Manager: [place] Signed Normal [facility] Anion gap in Serum or Plasma Ordered By: Ciro Blas on 06-09-2024 Anion gap [Moles/Vol] 11 mmol/L 07-29 [facility] BUN/creatinine ratioOrdered By: Ciro Blas on 06-09-2024 Urea nitrogen/Creatinine [Mass ratio] 18.9 mg/mg 01-03 [facility] Basic Metabolic Profile (BMP )on 06-09-2024 BUN/CRE 18.9 RATIO Normal 01-03 [facility] Comment on above: Performed By: #### L 500.2500, L500.4100, L501.5200, L501.9520 #### [facility] [address] [place], [place], [id number] GAP 11 Normal 07-29 [facility] Comment on above: Performed By: #### L 500.2500, L500.4100, L501.5200, L501.9520 #### [facility] [address] [place], [place], [id number] Calculated very low density lipoprotein (VLDL) cholesterol measurementOrdered By: Ciro Blas on 06-09-2024 Calculated very low density lipoprotein (VLDL) cholesterol measurement 26 mg/dL -40 [facility] VLDL Cholesterol 26 mg/dL -40 [facility] Carbon dioxide, total [Moles /volume] in Central venous bloodOrdered By: Ciro Blas on 06-09-2024 CO2 [Moles/Vol] 28.4 mmol/L Normal 21.0-32.0 [facility] Comment on above: Performed By: #### L 500.2500, L500.4100, L501.5200, L501.9520 #### [facility] [address] [place], [address] Cardiology Visit Reporton Cardiology Visit Report [facility] [address] [place] [address] OFFICE VISIT Date of Service: 06/09/24 MR#: [id number] Acct: [id number] Name: MOE FIELD Rep #: [id number] : 1985 Provider: Dr. Ciro Blas MD Age/Sex: 38/M Location: [place] Status: Signed HPI HPI History of Present Illness Details: 38-year-old man with no previous cardiac history who presents for an initial evaluation for palpitations. He says that he has occasional fluttering and sometimes heart racing. He also has had some chest pain which is sometimes sharp other times dull and not necessarily related to activity. He does get some shortness of breath when he involves himself in an intense workout. Sometimes he does play soccer. He has had no dizziness or diaphoresis near syncope or syncope. As part of his workup he underwent a monitoring where he was noted to have approximately 12% premature ventricular complex frequency. No evidence of heart block was noted. He has not had any tachycardia spells his average heart rate was noted to be 68 bpm. No recent blood work has been done. He has had no syncope and he says that his blood work has been high on at least 1 occasion. His physical exam today is unremarkable his electrocardiogram demonstrates sinus bradycardia with a rate of 54 bpm and no acute changes. Intake Vital Signs 12/19/23 11:25 06/09/24 13:21 Height 5 ft 10 in 5 ft 10 in Weight: 179 lb BMI 25.7 BP 146/85 H Blood Pressure Location Lt brachial Position Sitting Respiration 16 Pulse 59 L Pulse Source Monitor Intake Visit Reasons: PCVs (Cesar) Museum Docent Required: No Accompanied by: Significant Other Is patient in pain?: No Allergies No Known Allergies Allergy (Verified 06/09/24 13:29) Medications ???Medication ???Instructions ???Recorded ???Confirmed ???Type trazodone 50 mg tablet 100 mg PO QHS PRN sleep 12/16/23 0 06/09/24 History multivitamin 1 tab PO QDAY 02/05/24 06/09/24 Hi story PFSH Medical History History of broken collarbone Insomnia PVCs (premature ventricular contractions) Lyme disease Alcohol use Restless legs Surgical History History of wisdom tooth extraction Family History Aunt Myocardial infarction Brother Hypertension Social History Smoking Status: Never smoker alcohol intake: current alcohol intake frequency: a few times a week Alcohol type: beer ROS Const Const: Negative for fatigue, weakness, headache(s), daytime sleepiness or difficulty sleeping ENT ENT: Negative for headache(s), dizziness or Nosebleed/epistaxis Cardio Chest Pain: Yes Frequency: other ("comes and goes") Character: other ("slight pain") Onset: exercise Location: left chest Duration: brief Exacerbation: exercise Relieving: rest Recurrence: exercise Palpitations: Yes feels like its: fast Edema: None Resp Respiratory: Positive for SOB with activity; Negative for SOB at rest, SOB orthopnea SOB lying down or Cough GI GI: Negative nausea, vomiting or heartburn Neuro Neuro: Negative for dizziness, lightheadedness, near syncope, headache(s) or weakness Endo Endo: Negative for fatigue Supplemental Info Supplemental Information 7 Day Event Monitor 02/05/24 Findings Predominant Rhythm: NSR Ectopic Atrial Run PVC 12% Abnormal P-wave morphology was present throughout, possibly due to atypical monitor location or an atrial ectopic source. Labs: No Data to Display Diagnostics: Electrocardiogram Pulmonary: Pulmonary Function Test Past Visits: Cardiology Visit 06/09/24 Assessment and Plan Assessment and Plan (1) PVCs (premature ventricular contractions): Status: Acute Plan: He does have evidence of premature ventricular complexes. My recommendation is for us to obtain a chemistry profile, thyroid profile and an echocardiogram. Depending on the findings further recommendations will be made. I have suggested to him to reduce the amount of alcohol intake and also he can take as needed magnesium tablets. If the above tests are normal I would not recommend we make any changes. I have given him a card to have his blood pressure checked and to report this to you. Depending on those findings as well further recommendations will be made. Thank you for allowing me to participate in the care of your patient. Please don't hesitate to call if any issues arise. Orders: Orders 12 Lead EKG performed by [facility] Today I49.3 - Ventricular premature depolarization Basic Metabolic Profile (BMP) Today I49.3 - Ventricular prematur (more content not included)... Normal [facility] Chloride assayOrdered By: Stewart Blas on 06-09-2024 Chloride [Moles/Vol] 102 mmol/L Normal 98-108 [facility] Comment on above: Performed By: #### L 500.2500, L500.4100, L501.5200, L501.9520 #### [facility] [address] [place], [address] GFR/1.73 sq M.predicted nesha g non-blacks MDRD (S/P/Bld) [Vol rate/Area]Ordered By: Ciro Blas on 06-09-2024 Estimated GFR (MDRD) Non-Af Amer 93 >60 [facility] Comment on above: mL/min/1.73m2 CKD-EP I Creatinine Equation (2020) Glomerular filtration rate ( GFR) estimation/1.73 sq m using serum, plasma, or whole bOrdered By: Ciro Blas on 06-09-2024 GFR/1.73 sq M.predicted among non-blacks MDRD (S/P/Bld) [Vol rate/Area] 93 mL/min/{1.73_m2} Normal >60 [facility] Comment on above: mL/min/1.73m2 CKD-EP I Creatinine Equation (2020) Result Comment: mL/m in/1.73m2 CKD-EPI Creatinine Equation (2020) Performed By: #### L 500.2500, L500.4100, L501.5200, L501.9520 #### [facility] [address] [place], [address] LDL calc ser/plasOrdered By: Ciro Wan on 06-09-2024 Cholesterol in LDL [Mass/Vol] 82 mg/dL Normal [facility] Comment on above: Yhbrxvdfwa=149-115 m g/dL & Higher Iwgc=687 mg/dL or greater Result Comment: Bord bynrtq=152-604 mg/dL Higher Uavw=010 mg/dL or greater Performed By: #### L 500.2500, L500.4100, L501.5200, L501.9520 #### [facility] [address] [place], [address] LDL Cholesterol, Calculated 82 mg/dL [facility] Comment on above: Lmdizhfxag=935-719 m g/dL & Higher Heqi=661 mg/dL or greater Lipid Profileon 06-09-2024 CHOL:HDL 2.45 Normal [facility] Comment on above: Performed By: #### L 500.2500, L500.4100, L501.5200, L501.9520 #### [facility] [address] [place], [address] Cholesterol in VLDL [Mass/Vol] 26 mg/dL Normal 5-40 [facility] Comment on above: Performed By: #### L 500.2500, L500.4100, L501.5200, L501.9520 #### [facility] [address] [place], [address] Magnesium measurement (mass/ volume)Ordered By: Ciro Blas on 06-09-2024 Magnesium [Mass/Vol] 2.2 mg/dL Normal 1.5-2.2 [facility] Comment on above: Performed By: #### L 500.2500, L500.4100, L501.5200, L501.9520 #### [facility] [address] [place], [address] Magnesium (Unsp spec) [Mass/Vol] 2.2 mg/dL 1.5-2.2 [facility] Potassium measurement (mass/ volume)Ordered By: Ciro Wan on 06-09-2024 Potassium [Moles/Vol] 4.3 mmol/L Normal 3.3-5.1 [facility] Comment on above: Performed By: #### L 500.2500, L500.4100, L501.5200, L501.9520 #### [facility] [address] [place], [address] Potassium (Unsp spec) [Mass/Vol] 4.3 mmol/L 3.3-5.1 [facility] Screening total cholesterol/ high density lipoprotein (HDL) cholesterol ratioOrdered By: Ciro [facility] on 06-09-2024 Cholesterol.total/Cho lesterol in HDL [Mass ratio] 2.45 {ratio} [facility] Serum creatinine measurement (mass/volume)Ordered By: Ciro Wan on 06-09-2024 Creatinine [Mass/Vol] 1.04 mg/dL Normal 0.70-1.20 [facility] Comment on above: Performed By: #### L 500.2500, L500.4100, L501.5200, L501.9520 #### [facility] [address] [place], [address] Serum glucose measurement (m ass/volume)Ordered By: Ciro Wan on 06-09-2024 Glucose [Mass/Vol] 90 mg/dL Normal 70-99 [facility] Comment on above: Performed By: #### L 500.2500, L500.4100, L501.5200, L501.9520 #### [facility] [address] [place], [address] Serum or plasma calcium mauricio urement (mass/volume)Ordered By: Ciro Blas on 06-09-2024 Calcium [Mass/Vol] 9.8 mg/dL Normal 7.6-11.0 [facility] Comment on above: Performed By: #### L 500.2500, L500.4100, L501.5200, L501.9520 #### [facility] [address] [place], [address] Serum or plasma cholesterol in HDL measurement (mass/volume)Ordered By: Ciro Blas on 06-09-2024 Cholesterol in HDL [Mass/Vol] 75 mg/dL Normal [facility] Comment on above: National Cholesterol Education Program (NCEP) guidelines:<40 mg/dL: Low HDL-cholesterol (major risk factor for CHD)>= 60 mg/dL: High HDL-cholesterol (negative risk factor for CHD)HDL-cholesterol is affected by a number of factors, e.g. smoking, exercise, hormones, sex and age. Result Comment: Nayely onal Cholesterol Education Program (NCEP) guidelines: <40 mg/dL: Low HDL-cholesterol (major risk factor for CHD) >= 60 mg/dL: High HDL-cholesterol (negative risk factor for CHD) HDL-cholesterol is affected by a number of factors, e.g. smoking, exercise, hormones, sex and age. Performed By: #### L 500.2500, L500.4100, L501.5200, L501.9520 #### [facility] [address] [place], [address] Serum or plasma cholesterol measurement (mass/volume)Ordered By: Ciro Blas on 06-09-2024 Cholesterol [Mass/Vol] 183 mg/dL Normal <=200 [facility] Comment on above: Cholesterol level, D esirable <200 mg/dLBorderline high cholesterol 200-239 mg/dLHigh cholesterol >=240 mg/dLRecommendations of the NCEP Adult Treatment Panel for the following risk-cutoff thresholds for the [place] population. Result Comment: Chol esterol level, Desirable <200 mg/dL Borderline high cholesterol 200-239 mg/dL High cholesterol >=240 mg/dL Recommendations of the NCEP Adult Treatment Panel for the following risk-cutoff thresholds for the [place] population. Performed By: #### L 500.2500, L500.4100, L501.5200, L501.9520 #### [facility] [address] [place], [place], [id number] Serum or plasma urea nitroge n measurement (mass/volume)Ordered By: Ciro Blas on 06-09-2024 Urea nitrogen [Mass/Vol] 20 mg/dL High 4-19 [facility] Comment on above: Performed By: #### L 500.2500, L500.4100, L501.5200, L501.9520 #### [facility] [address] [place] [id number] Sodium levelOrdered By: Jacqui augustin Wan on 06-09-2024 Sodium [Moles/Vol] 141 mmol/L Normal 133-145 [facility] Comment on above: Performed By: #### L 500.2500, L500.4100, L501.5200, L501.9520 #### [facility] [address] [place], [place], [id number] TSH DL <= 0.005 mIU/L QnOrde red By: Ciro Wan on 06-09-2024 Thyroid Stimulating Hormone (TSH) 1.740 uIU/mL 0.300-4.200 [facility] TSH Qn 1.740 uIU/mL 0.300-4.200 [facility] Thyroid Stim Hormone (TSH)on 06-09-2024 TSH 1.740 uIU/mL Normal 0.300-4.200 [facility] Comment on above: Performed By: #### L 500.2500, L500.4100, L501.5200, L501.9520 #### [facility] [address] [place], [place], [id number] Triglycerides measurementOrd ered By: Ciro Wan on 06-09-2024 Triglyceride [Mass/Vol] 131 mg/dL Normal [facility] Comment on above: The drugs N-Acetylcy steine and Metamizole may falsely depress this assay. Normal range: <150 mg/dLBorderline High: 150-199 mg/dLHigh: 200-499 mg/dLVery High: >500 mg/dL Result Comment: The drugs N-Acetylcysteine and Metamizole may falsely depress this assay. Normal range: <150 mg/dL Borderline High: 150-199 mg/dL High: 200-499 mg/dL Very High: >500 mg/dL Performed By: #### L 500.2500, L500.4100, L501.5200, L501.9520 #### [facility] [address] [facility] [place], [address] Clavicleon 03-30-2024 Clavicle [facility] [address] [place] [address] Clavicle MR#: [id number] Acct: [id number] Name: FAMMOE FISH ADILENE Rep #: [id number] : 1985 M 38 From: Vincent Clayton MD PCP: Care Physician,No Primary Status: DEP AMB Study: Clavicle Date of Exam: 03/30/24 Exam# [id number] Ordering Dr: [place] [id number] STUDY: X-RAY - RIGHT CLAVICLE REASON FOR EXAM: Male, 38 years old. Follow-up. TECHNIQUE: 2 views of the right clavicle. COMPARISON: Right clavicle radiographs dated 02/05/2024. FINDINGS: Stable appearance of surgical hardware along the dorsal aspect of the clavicle to reduce a fracture. Hardware is intact and free of complication. There is further healing at the fracture site especially in regards to the floating fracture fragment inferior to the fracture site. Normal clavicle. Normal acromioclavicular articulation. Normal visualized sternoclavicular articulation. Normal visualized pulmonary apex. RAD/Clavicle IMPRESSION: Intact hardware along the dorsal clavicle. Further healing of the fracture at the midshaft of the clavicle. Electronically Signed: Vincent Clayton MD at 15:42 EST Reading Location ID and State: [facility] / [place] , Service support , CC: Dr. Hernan Victoria MD; No Primary Care Physician Loan And Credit Manager: Signed Normal [facility] Orthopedic Visit Reporton Orthopedic Visit Report [facility] [address] [place] [address] [address] [place] [address] OFFICE VISIT Date of Service: 03/30/24 MR#: [id number] Acct: [id number] Name: MOE FIELD Rep #: [id number] : 1985 Provider: Dr. Hernan tam MD Age/Sex: 38/M [place] [facility] Status: Signed Intake Vital Signs 12/19/23 11:25 Height 5 ft 10 in Intake Visit Reasons: RIGHT CLAVICLE Chief Complaint: Right Clavicle Follow-Up Accompanied by: Self Is patient in pain?: No Allergies No Known Allergies Allergy (Verified 03/30/24 08:33) Medications ???Medication ???Instructions ???Recorded ???Confirmed ???Type trazodone 50 mg tablet 100 mg PO QHS PRN sleep 12/16/23 03/30/24 History calcium carbonate (Oyster Shell 500 mg PO QDAY 02/05/24 03/30/24 History Calcium 500) multivitamin 1 tab PO QDAY 02/05/24 03/30/24 History PFSH Medical History Alcohol use Restless legs Non-smoker Surgical History History of wisdom tooth extraction Social History Smoking Status: Never smoker HPI RIGHT CLAVICLE Details: This documentation accurately reflects the service provided and the decisions made by me, Dr. Hernan Victoria MD 03/30/24 0743. Part of today???s visit was documented by [ ], acting as scribe. MOE FIELD is a 38 year old M here today for 3 months follow-up right clavicle open reduction internal fixation. Patient doing well overall no pain he was doing some traveling to the [place] that specially where he is from. He did a little bit of light bouldering which is rockclimbing Supplemental Info X-rays taken today of the clavicle 2 views show the plate to be in good alignment fracture to be healed butterfly fragment slowly healing in place callus formation present. Coding Level of Care Code Global Post Op Diagnoses Clavicular fracture S42.009A Assessment and Plan Assessment and Plan (1) Clavicular fracture: Status: Inactive Plan: 38-year-old man 3 months follow-up right clavicle open reduction internal fixation. The patient is doing well the fracture looks healed the butterfly fragment will take another 3 to 6 months to fully consolidate. The patient can be activities as tolerated. The patient is interested to see how the fracture appears the next follow-up would be in 9 months time or as needed he understands no further questions or concerns. Orders: Orders Clavicle Today S42.009A - Fracture of unspecified part of unspecified clavicle, initial encounter for closed fracture Ortho Exam General General: Yes no acute distress Neurologic: Yes alert and Yes oriented x3 Psychologic: Yes reasonable and appropriate Right Shoulder Skin/Wound: Yes CDI, Yes healed, No ecchymosis, No erythema and No swelling Testing: Positive AROM-Forward Elevation 0-180 and AROM-External Rotation at side 0-60 SHOULDER: nvi ax, mru and ain/pin. good radial pulse. no numbness around incision. no pain to fracture site 03/30/24 0856 Date Hernan Victoria MD [facility] Signature: Date (if applicable) CC: Normal [facility] Clavicleon 02-05-2024 Clavicle [facility] [address] [place] [address] Clavicle MR#: [id number] Acct: [id number] Name: MOE FIELD Rep #: [id number] : 1985 M 38 From: Seb Curtis MD PCP: Care Physician,No Primary Status: DEP AMB Study: Clavicle Date of Exam: 02/05/24 Exam# [id number] Ordering [place]: [place] [id number] STUDY: X-RAY - RIGHT CLAVICLE REASON FOR EXAM: Male, 38 years old. Known fracture TECHNIQUE: 2 view(s) of the clavicle. COMPARISON: 01/06/2024 FINDINGS: Stable appearance of surgical hardware along the dorsal aspect of the clavicle to reduce a fracture. Hardware is intact and free of complication. Minimal healing is occurring at the fracture site there is still evidence of cortical irregularity floating fracture fragment inferior to the fracture site. Normal clavicle. Normal acromioclavicular articulation. Normal visualized sternoclavicular articulation. Normal visualized pulmonary apex. RAD/Clavicle IMPRESSION: Intact hardware along the dorsal clavicle. Little significant healing has occurred at a fracture in the midshaft of the clavicle Overall, little significant interval change since the previous study Electronically Signed: Fritz Curtis MD at 8:31 EST , CC: Dr. Hernan Victoria MD; No Primary Care Physician Loan And Credit Manager: Signed Normal [facility] Orthopedic Visit Reporton Orthopedic Visit Report [facility] [address] [place] [address] OFFICE VISIT Date of Service: 02/05/24 MR#: [id number] Acct: [id number] Name: MOE FIELD Rep #: [id number] : 1985 Provider: Dr. Hernan tam MD Age/Sex: 38/M [place] [facility] Status: Signed Intake Vital Signs 12/19/23 11:25 Height 5 ft 10 in Intake Visit Reasons: RIGHT CLAVICLE Chief Complaint: injury on 12/10 Accompanied by: Self Is patient in pain?: No Allergies No Known Allergies Allergy (Verified 02/05/24 09:29) Medications ???Medication ???Instructions ???Recorded ???Confirmed ???Type trazodone 50 mg tablet 100 mg PO QHS PRN sleep 12/16/23 02/05/24 History calcium carbonate (Oyster Shell 500 mg PO QDAY 02/05/24 02/05/24 History Calcium 500) multivitamin 1 tab PO QDAY 02/05/24 02/05/24 History PFSH Medical History Alcohol use Restless legs Non-smoker Surgical History History of wisdom tooth extraction Social History Smoking Status: Never smoker HPI RIGHT CLAVICLE Details: This documentation accurately reflects the service provided and the decisions made by me, Dr. Hernan Victoria MD 02/05/24 0840. Part of today???s visit was documented by [ ], acting as scribe. MOE FIELD is a 38 year old M here today for 6 weeks follow-up right clavicle open reduction internal fixation. Patient doing well doing some range of motion exercises no pain. Is seeing physical therapy at [facility]. Supplemental Info X-rays 2 views of the right clavicle demonstrates good healing and alignment of the fracture. butterfly fragment visible Coding Level of Care Code Global Post Op Diagnoses Clavicular fracture S42.009A Assessment and Plan Assessment and Plan (1) Clavicular fracture: Status: Inactive Plan: MOE FIELD is a 38 year old M here today for 6 weeks follow-up right clavicle open reduction internal fixation. Patient doing well the fracture looks healed the butterfly fragment is still visible that will take months to consolidate. The patient can return to some light strengthening I would recommend him to avoid competitive soccer matches for another 6 weeks and follow-up at that point for final radiographs and clearance for full activity participation. Orders: Orders Clavicle Today S42.009A - Fracture of unspecified part of unspecified clavicle, initial encounter for closed fracture Referrals PT Referral S42.009A - Fracture of unspecified part of unspecified clavicle, initial encounter for closed fracture Ortho Exam General General: Yes no acute distress Neurologic: Yes alert and Yes oriented x3 Psychologic: Yes reasonable and appropriate Right Shoulder Skin/Wound: Yes CDI, Yes healed, No ecchymosis, No erythema and No swelling Testing: Positive AROM-Forward Elevation 0-180 and AROM-External Rotation at side 0-60 SHOULDER: nvi ax, mru and ain/pin. good radial pulse. no numbness around incision. no pain to fracture site 02/05/24 1003 Date Hernan Victoria MD [facility] Signature: Date (if applicable) CC: Normal [facility] Clavicleon 01-06-2024 Clavicle [facility] [address] [place] [address] Clavicle MR#: [id number] Acct: [id number] Name: MOE FIEDL Rep #: [id number] : 1985 M 38 From: Vincent Clayton MD PCP: Care Physician,No Primary Status: DEP AMB Study: Clavicle Date of Exam: 01/06/24 Exam# [id number] Ordering Dr: [place] [id number] STUDY: X-RAY - RIGHT CLAVICLE REASON FOR EXAM: Male, 38 years old. Post op. TECHNIQUE: 2 views of the right clavicle. COMPARISON: Right clavicle radiographs dated 12/11/2023 and right clavicle spot films dated 12/19/2023 . FINDINGS: Plate and screw fixation of the right clavicle is again noted. Hardware is intact. Normal acromioclavicular articulation. Normal visualized sternoclavicular articulation. Normal visualized pulmonary apex. RAD/Clavicle IMPRESSION: Plate and screw fixation of the right clavicle again noted. Intact hardware. Electronically Signed: Vincent Clayton MD at 15:38 EDT Reading Location ID and State: [facility] / [place] , Service support , CC: Dr. Hernan Victoria MD; No Primary Care Physician Loan And Credit Manager: Signed Normal [facility] Inital Evaluation (1) - PTon 01-06-2024 Inital Evaluation (1) - PT [facility] [address] [place] [address] [address] [place] [address] / REHABILITATION SERVICES INITIAL EVALUATION MR#: [id number] Acct: [id number] Name: MOE FEILD Rep #: [id number] : 1985 38 From: Eliazar HAYWOODT Referring Dr.: Dr. Hernan Victoria MD Status: R EG RCR Insurance: [facility] [id number] SELF PAY INSURANCE Patient's Visit Information Visit Information Visit Information: MOE FIELD is a 38 year old M referred to Physical Therapy by Dr. Hernan Victoria MD with a diagnosis of R clavicle ORIF. Date of Evaluation: 01/06/24 Physical Therapist: Eliazar Justice DPT Visit Plan Frequency: 2x /Week Duration: 6 Weeks Plan: Start with progressive AAROM and PROM of R shoulder, limited to 90deg until given permission from physician to progress. Using [facility] protocol to guide rehab. Subjective Subjective: Pt. is here today for his initial evaluation with R clavicle ORIF. Pt. reports falling while playing soccer. DOS: 12/19/23. Pt. arrives in sling and reports minimal pain. He has been doing pendulums with good tolerance. Pt. is allowed to be out of sling for exercises and pendulums. pt. denies N/T. He does occasionally get pins and needle like feeling along his incision, but infrequent. Pt. is sleeping okay. Pt. is able to move his arm without much discomfort. 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 He does have some issues with sleeping, unable to get comfortable. Pt. is hopeful to resume all previous activities including running, and playing sports. Pain R clavicle: Pain Intensity (Out of 10): 0 Pain Intensity Range: 0 and 2 Objective Objective: POSTURE: pt. has slight slouched posture, R UE in guarded positioning. Pt. is able to correct with VC/TCing. PALPATION: Pt. has good healing incision, no signs of infection. NEURO: Pt. has normal DTR of B biceps and triceps ROM: L shoulder: full ROM without issues. R shoulder: AROM: elbow and wrist full motions. PROM: R shoulder: flexion 90deg , abd 90deg, scaption 90deg, ER full motion. (Pt. could have went further with all of his motions) MMT: LUE: 5/5 throughout. RUE: DNT due to recent surgery Balance/Special Test Scores Quick DASH Score: 45.4525 Goals Goal 1:: LTG: Pt. to be I with HEP. Goal Time Frame: 4-6 Weeks Goal 2:: STG: Pt. to have full AAROM of R shoulder. Goal Time Frame: 2-4 Weeks Goal 3:: LTG: Pt. to have full AROM of R shoulder without increase in symptoms. Goal Time Frame: 4-6 Weeks Goal 4:: LTG: Pt. to have increased R shoulder strength symmetrical to L shoulder. Goal Time Frame: 6-8 Weeks Goal 5:: LTG: Pt. to resume all recreational and sporting activities without increase in R shoulder pain. Goal Time Frame: 6-8 Weeks Rehabilitation Potential Physical Therapy Diagnosis: Pt. has signs and symptoms consistent with R clavicle ORIF. Pt. is overall doing very well. He does have some hypomobility, but did not have restricted movements, I stopped prior to tightness. He would benefit from PT to progress end range of motion and eventual strengthening. Rehabilitation Potential: Excellent Anticipated Interventions Patient/Client Instruction: Educate patient on: Condition, Plan of Care, Risk Factors and Benefits of Fitness Program For the Purpose of:: To facilitate caregiver knowledge, To improve self management, To prevent re- injury, To improve ability to perform tasks related to life management and To improve tolerance to ADL's Therapeutic Exercise to Include: Strength training, Power training, Endurance training, Postural training, Gait and locomotor training, Passive ROM, Active ROM and Scapular Strength/Stabilization For the Purpose of:: To decrease pain, To increase ROM, To improve nutrient delivery to tissue, To increase oxygenation perfusion, To improve muscle performance and motor function, To improve ability to perform ADL's, To increase tolerance to activity/condition/posi tion, To improve performance and independence with ADL's, To decrease level of supervision to perform tasks, To improve ability of physical actions for home/community/work/lei sure and To improve health of tissue Text: Thank you for the opportunity to evaluate your patient. For Medicare and Medicare HMO plans, please review the plan of care and approve it. It will need to be FAXED BACK to us at [phone] for Medicare purposes. For Medicare only, by signing this I certify the plan of care. Please let me know if there are questions or concerns regarding this plan of care. Physician Signature: Date: 01/06/24 0912 CC: Dr. Hernan Victoria MD; No Primary Care Physician CLS Signed Normal [facility] Orthopedic Visit Reporton Orthopedic Visit Report [facility] [address] [place] [address] OFFICE VISIT Date of Service: 01/06/24 MR#: [id number] Acct: [id number] Name: MOE FIELD Rep #: [id number] : 1985 Provider: Dr. Hernan tam MD Age/Sex: 38/M [place] [facility] Status: Signed Intake Vital Signs 12/19/23 11:25 Height 5 ft 10 in Intake Visit Reasons: RIGHT CLAVICLE Accompanied by: Is patient in pain?: No Allergies No Known Allergies Allergy (Verified 01/06/24 09:44) Medications ???Medication ???Instructions ???Recorded ???Confirmed ???Type ibuprofen 600 mg tablet 600 mg PO Q6H PRN PRN pain #20 12/11/23 01/06/24 Rx TABLETS ondansetron 4 mg disintegrating 4 mg PO Q8H PRN PRN Nausea #10 tabs 12/11/23 01/06/24 Rx tablet trazodone 50 mg tablet 100 mg PO QHS PRN sleep 12/16/23 01/06/24 History PFSH Medical History Alcohol use Restless legs Non-smoker Surgical History History of wisdom tooth extraction Social History Smoking Status: Never smoker HPI RIGHT CLAVICLE Details: This documentation accurately reflects the service provided and the decisions made by me, Dr. Hernan Victoria MD 01/06/24 0942. Part of today???s visit was documented by [ ], acting as scribe. MOE FIELD is a 38 year old M here today for 2 wks FU R clavicle ORIF. doing well. started PT. wearing sling. very rare numbness over the incision, some mild bruising. no to min pain. Ortho Exam General General: Yes no acute distress Neurologic: Yes alert and Yes oriented x3 Psychologic: Yes reasonable and appropriate Right Shoulder Skin/Wound: Yes CDI, Yes healed, No ecchymosis, No erythema and No swelling SHOULDER: nvi ax, mru and ain/pin. good radial pulse. no numbness around incision. Supplemental Info xr 2 view R clavicle - good alignment, comminuted fragment displaced inferiorly Coding Level of Care Code Global Post Op Diagnoses Clavicular fracture S42.009A Assessment and Plan Assessment and Plan (1) Clavicular fracture: Status: Inactive Plan: MOE FIELD is a 38 year old M here today for 2 wks FU R clavicle ORIF. doing well. dc sling. ok to shower over incision. ok for gentle ROM, no strengthening. FU 6 weeks. Orders: Orders Clavicle Today S42.009A - Fracture of unspecified part of unspecified clavicle, initial encounter for closed fracture 01/06/24 1004 Date Hernan Smith Signature: Date (if applicable) CC: Normal [facility] Absolute lymphocyte countOrd ered By: Alicia Molinanger on 11-05-2022 Lymphocytes Auto (Unsp spec) [#/Vol] 1.20 10*3/uL 0.83-4.51 [facility] Basophil percentageOrdered B y: Alicia Delfina on 11-05-2022 Basophils/100 WBC (Bld) 0.7 % 0-1 [facility] Bilirubin [Mass/Vol] 0.60 mg/dL 0.20-1.00 [facility] Comment on above: For patients on eltr ombopag therapy, use of Dimension [place] TBIL is not recommended. Chloride [Moles/Vol] 105 mmol/L 98-107 [facility] Cholesterol [Mass/Vol] 157 mg/dL <200 [facility] Comment on above: <200 mg/dL Desirable 200-240 mg/dL Borderline >240 mg/dL High Risk Eosinophils/100 WBC (Bld) 1.0 % 0-5 [facility] Glucose [Mass/Vol] 85 mg/dL 74-106 [facility] Neutrophils (Bld) [#/Vol] 5.1 10*3/uL 2.0-7.7 [facility] Neutrophils/100 WBC (Bld) 73.7 % 47-70 [facility] Potassium [Moles/Vol] 4.0 mmol/L 3.5-5.1 [facility] Protein [Mass/Vol] 7.5 g/dL 6.4-8.2 [facility] Sodium [Moles/Vol] 139 mmol/L 136-145 [facility] Triglyceride [Mass/Vol] 92 mg/dL <199 [facility] Comment on above: The drugs N-Acetylcy steine and Metamizole may falsely depress this assay.Serum Triglycerides Reference Interval Normal <150 mg/dL Borderline high 150 - 199 mg/dL High 200 - 499 mg/dL Very High > or = 500 mg/dL WBC (Bld) [#/Vol] 6.9 10*3/uL 4.4-11.0 [facility] Blood erythrocytes count (nu mber/volume)Ordered By: Alicia Mathis on 11-05-2022 RBC (Bld) [#/Vol] 4.96 10*6/uL 4.6-6.2 [facility] Blood hemoglobin measurement (mass/volume)Ordered By: Alicia Mathis on 11-05-2022 Hemoglobin (Bld) [Mass/Vol] 14.6 g/dL 13.0-16.5 [facility] Blood lymphocytes/100 leukoc ytesOrdered By: Alicia Mathis on 11-05-2022 Lymphocytes/100 WBC (Bld) 17.5 % 19-41 [facility] Blood monocytes/100 leukocyt esOrdered By: Alicia Mathis on 11-05-2022 Monocytes/100 WBC (Bld) 6.8 % 0-10 [facility] Blood platelet mean volumeOr dered By: Alicia Mathis on 11-05-2022 Platelet mean volume (Bld) [Entitic vol] 9.0 fL 6.2-12.0 [facility] Determination of erythrocyte mean corpuscular volume (MCV)Ordered By: Alicia Mathis on 11-05-2022 MCV (RBC) [Entitic vol] 87.9 fL 80-94 [facility] Hematocrit Auto (Bld) [Volum e fraction]Ordered By: Alicai Mathis on 11-05-2022 Hematocrit (Bld) [Volume fraction] 43.6 % 40-54 [facility] Laboratory - Chemistry and C hemistry - challengeOrdered By: Alicia Mathis on 11-05-2022 ALP [Catalytic activity/Vol] 67 U/L 45-117 [facility] ALT [Catalytic activity/Vol] 25 U/L 16-61 [facility] CO2 [Moles/Vol] 27.0 mmol/L 21.0-32.0 [facility] Globulin (S) [Mass/Vol] 3.3 g/dL 2.2-4.2 [facility] Urea nitrogen/Creatinine [Mass ratio] 17.5 mg/mg 10-20 [facility] Laboratory - Hematology and Cell countsOrdered By: Alicia Mathis on 11-05-2022 Erythrocyte distribution width (RBC) [Entitic vol] 41.8 fL 35.1-43.9 [facility] Erythrocyte distribution width (RBC) [Ratio] 13.0 % 11.6-14.6 [facility] Immature granulocytes/100 WBC (Bld) 0.300 % 0.0-0.9 [facility] Comment on above: IG% - Immature Granu locytes (promyelocytes, myelocytes and metamyelocytes) > 1% indicates that a LEFT SHIFT is Present. MCH (RBC) [Entitic mass] 29.4 pg 27.0-32.0 [facility] Nucleated RBC/100 WBC (Bld) [Ratio] 0 % 0-5 [facility] MCHC Auto (RBC) [Mass/Vol]Or dered By: Alicia Mathis on 11-05-2022 MCHC (RBC) [Mass/Vol] 33.5 g/dL 32-36 [facility] No Panel InformationOrdered By: Alicia Mathis on 11-05-2022 Estimated GFR (MDRD) Amer 110 mL/min >60 [facility] Comment on above: GFR Calc Estimated GFR (MDRD) Non-Af Amer 91 mL/min >60 [facility] Comment on above: Non- GFR Calc Platelets bldOrdered By: Freda Mathis on 11-05-2022 Platelets (Bld) [#/Vol] 293 10*3/uL 150-450 [facility] Serum or plasma albumin mauricio urement (mass/volume)Ordered By: Alicia Mathis on 11-05-2022 Albumin [Mass/Vol] 4.2 g/dL 3.2-5.0 [facility] Serum or plasma albumin/glob ulin mass ratioOrdered By: Alicia Mathis on 11-05-2022 Albumin/Globulin [Mass ratio] 1.3 {ratio} 0.9-2.4 [facility] Serum or plasma calcium mauricio urement (mass/volume)Ordered By: Alicia Mathis on 11-05-2022 Calcium [Mass/Vol] 9.4 mg/dL 8.5-10.1 [facility] Serum or plasma cholesterol in HDL measurement (mass/volume)Ordered By: Alicia Mathis on 11-05-2022 Cholesterol in HDL [Mass/Vol] 68 mg/dL >40 [facility] Comment on above: The drugs N-Acetylcy steine and Metamizole may falsely depress this assay. Reference Range HDL <40 mg/dL Low HDL Cholesterol HDL >or= 60 mg/dL High HDL Cholesterol Serum or plasma cholesterol in VLDL measurement (mass/volume)Ordered By: Alicia Mathis on 11-05-2022 Cholesterol in VLDL [Mass/Vol] 18 mg/dL 5-40 [facility] Serum or plasma creatinine m easurement (mass/volume)Ordered By: Alicia Mathis on 11-05-2022 Creatinine [Mass/Vol] 0.97 mg/dL 0.70-1.30 [facility] Comment on above: The validity of the calculated GFR & GFRAA in patients over 70 years has not been determined. Clinical correlation is essential. Serum or plasma low density lipoprotein (LDL) cholesterol measurement (mass/volume)Ordered By: Alicia Mathis on 11-05-2022 Cholesterol in LDL [Mass/Vol] 71 mg/dL 0-130 [facility] Serum or plasma urea nitroge n measurement (mass/volume)Ordered By: Alicia Mathis on 11-05-2022 Urea nitrogen [Mass/Vol] 17 mg/dL 7-18 [facility] Thin prep Papanicolaou smear with manual screeningOrdered By: Alicia Mathis on 11-05-2022 Thin prep Papanicolaou smear with manual screening 18 U/L 15-37 [facility] Thin prep Papanicolaou smear with manual screening 7 5-15 [facility] Cerebrospinal fluid Borrelia burgdorferi 18kd IgG antibody detection by immunoblotOrdered By: Ronald Guerrero on 10-29-2022 B. burgdorferi 18kD IgG IB Ql (CSF) Absent . [facility] Cerebrospinal fluid Borrelia burgdorferi 23kD IgG antibody detection by immunoblotOrdered By: Ronald Guerrero on 10-29-2022 B. burgdorferi 23kD IgG IB Ql (CSF) Present . [facility] Cerebrospinal fluid Borrelia burgdorferi 23kD IgM antibody detection by immunoblotOrdered By: Ronald Guerrero on 10-29-2022 B. burgdorferi 23kD IgM IB Ql (CSF) Absent . [facility] Cerebrospinal fluid Borrelia burgdorferi 28kD IgG antibody detection by immunoblotOrdered By: Ronald Guerrero on 10-29-2022 B. burgdorferi 28kD IgG IB Ql (CSF) Present . [facility] Cerebrospinal fluid Borrelia burgdorferi 39kD IgG antibody detection by immunoblotOrdered By: Ronald Guerrero on 10-29-2022 B. burgdorferi 39kD IgG IB Ql (CSF) Absent . [facility] Cerebrospinal fluid Borrelia burgdorferi 39kD IgM antibody detection by immunoblotOrdered By: Ronald Guerrero on 10-29-2022 B. burgdorferi 39kD IgM IB Ql (CSF) Absent . [facility] Cerebrospinal fluid Borrelia burgdorferi 41kD IgM antibody detection by immunoblotOrdered By: Ronald Guerrero on 10-29-2022 B. burgdorferi 41kD IgM IB Ql (CSF) Absent . [facility] No Panel InformationOrdered By: Ronald Guerrero on 10-29-2022 Lyme Disease IgG Ab 30 kDa Band Present . [facility] Lyme Disease IgG Ab 93 kDa Band Absent . [facility] Lyme Disease IgG West Blot Interp Positive . [facility] Comment on above: Positive: 5 of the f ollowing Borrelia-specific bands: 18,23,28,30,39,41,45,58, 66, and 93. Negative: No bands or banding patterns which do not meet positive criteria. Lyme Disease IgM Ab (Western Blot) Negative . [facility] Comment on above: Note: An equivocal o r positive EIA result followed by anegative Line Blot result is considered NEGATIVE. Anequivocal or positive EIA result followed by a positiveLine Blot is considered POSITIVE by the CDC.Positive: 2 of the following bands: 23,39 or 41Negative: No bands or banding patterns which do not meetpositive criteria.Criteria for positivity are those recommended byCDC/ASTPHLD. p23=Osp C, t39=[id number]:Sera from individuals with the following may cross reactin the Lyme Line Blot assays: other spirochetal diseases(periodontal disease, leptospirosis, relapsing fever, yaws,and pinta); connective autoimmune (Rheumatoid Arthritis andSystemic Lupus Erythematosus and also individuals withAntinuclear Antibody); other infections ([place]otted Fever; Marcia-De Guzman Virus, and Cytomegalovirus).Please Note: Lyme immunoblot alone is not recommended forthe diagnosis of Lyme disease. Current guidelines recommendthe use of a two-tiered approach to Lyme serology testingto improve the sensitivity and specificity of testing.[facility] offers test code 860549 Lyme Disease Serology withReflex to aid in the diagnosis of Lyme Disease.Performed at: [address] [id number] Director: Josie Davila MD, Phone: [phone] Serum Borrelia burgdorferi 4 1kD IgG antibody detection by immunoblotOrdered By: Ronald Guerrero on 10-29-2022 B. burgdorferi 41kD IgG IB Ql (S) Present . [facility] Serum Borrelia burgdorferi 6 6kD IgG antibody detection by immunoblotOrdered By: Ronlad Guerrero on 10-29-2022 B. burgdorferi 66kD IgG IB Ql (S) Absent . [facility] Synovial fluid Borrelia luis antonio dorferi 45kD IgG antibody detection by immunoblotOrdered By: Ronald Guerrero on 10-29-2022 B. burgdorferi 45kD IgG IB Ql (Syn fld) Absent . [facility] Synovial fluid Borrelia luis antonio dorferi 58kD IgG antibody detection by immunoblotOrdered By: Ronald Guerrero on 10-29-2022 B. burgdorferi 58kD IgG IB Ql (Syn fld) Present . [facility]. Teston 10-24-2019 [facility]. Test Result SEE BELOW Normal [facility] Comment on above: Result Comment: Rock y [place] Spot Fe IgG 1:256 AB Reference range: <1:64 (NOTE) INTERPRETIVE INFORMATION: Rickettsia rickettsii ([facility] Spotted Fever) Ab, IgG Less than 1:64 ....... Negative - No significant level of IgG antibody detected. 1:64 - 1:128 ......... Low Positive - Presence of IgG Antibody detected, suggestive of current or past infection. 1:256 or greater ..... Positive - Presence of IgG antibody detected, suggestive of current or past infection. Antibody reactivity to Rickettsia rickettsii antigen should be considered Spotted Fever group reactive. Other organisms within the group include R. akari, R. conorrii, R. australis and R. sibirica. Seroconversion, a fourfold or greater rise in antibody titer, between acute and convalescent sera is considered strong evidence of recent infection. Acute-phase specimens are collected during the first week of illness and convalescent-phase samples are generally obtained 2-4 weeks after resolution of illness. Ideally these samples should be tested simultaneously at the same facility. If the sample submitted was collected during the acute-phase of illness, submit a marked convalescent sample within 25 days for paired testing. [facility] Fe IgM <1:64 Reference range: <1:64 (NOTE) INTERPRETIVE INFORMATION: Rickettsia rickettsii ([facility] Spotted Fever) Ab, IgM Less than 1:64 ....... Negative - No significant level of IgM antibody detected. 1:64 or greater ...... Positive - Presence of IgM antibody detected, which may indicate a current or recent infection; however, low levels of IgM antibodies may occasionally persist for more than 12 months post-infection. Antibody reactivity to Rickettsia rickettsii antigen should be considered Spotted Fever group reactive. Other organisms within the group include R. akari, R. conorrii, R. australis and R. sibirica. Seroconversion, a fourfold or greater rise in antibody titer, between acute and convalescent sera is considered strong evidence of recent infection. Acute-phase specimens are collected during the first week of illness and convalescent-phase samples are generally obtained 2-4 weeks after resolution of illness. Ideally these samples should be tested simultaneously at the same facility. If the sample submitted was collected during the acute-phase of illness, submit a marked convalescent sample within 25 days for paired testing. The CDC does not use IgM results for routine diagnostic testing of [place] Spotted Fever, as the response may not be specific for the agent (resulting in false positives) and the IgM response may be persistent from past infection. Performed By: [email or web address] [address] [place] [id number] Junior Architect: Pasquale Medina MD, MS Performing Laboratory: Performed By: #### G OX #### [place] [address] EBV Panelon 2019 EBV Panel SEE BELOW Normal [facility] Comment on above: Result Comment: EBV VCA IgG, Qual Negative NEGAT EBV VCA IgG antibodies are not detectable. If the result is negative and exposure to Marcia-De Guzman virus is suspected, a second sample should be collected and tested no less than one to two weeks later. EBV VCA IgG <0.2 AI AI VALUES ARE INTERPRETED FOLLOWS: NEGATIVE SPECIMENS <=0.8 EQUIVOCAL SPECIMENS 0.9 TO 1.0 POSITIVE SPECIMENS >=1.1 Antibody index (AI) values reflect qualitative changes in antibody concentration that cannot be associated with clinical condition or disease state. EBV VCA IgM, Qual Negative NEGAT EBV VCA IgM antibodies are not detectable. EBV VCA IgM <0.2 AI AI VALUES ARE INTERPRETED FOLLOWS: NEGATIVE SPECIMENS <=0.8 EQUIVOCAL SPECIMENS 0.9 TO 1.0 POSITIVE SPECIMENS >=1.1 The magnitude of the reported IgM level cannot be correlated to an endpoint titer (or clinical status). EBV EA Ab, Qual Negative NEGAT EBV EA-D IgG antibodies are not detectable. If the result is negative and exposure to Marcia-De Guzman virus is suspected, a second sample should be collected and tested no less than one to two weeks later. EBV EA Antibody <0.2 AI AI VALUES ARE INTERPRETED FOLLOWS: NEGATIVE SPECIMENS <=0.8 EQUIVOCAL SPECIMENS 0.9 TO 1.0 POSITIVE SPECIMENS >=1.1 Antibody index(AI) values reflect qualitative changes in antibody concentration that cannot be associated with clinical condition or disease state. EBV NA Ab, Qual Negative NEGAT EBV NA-1 IgG antibodies are not detectable. If the result is negative and exposure to Marcia-De Guzman virus is suspected, a second sample should be collected and tested no less than one to two weeks later. EBV NA Antibody <0.2 AI AI VALUES ARE INTERPRETED FOLLOWS: NEGATIVE SPECIMENS <=0.8 EQUIVOCAL SPECIMENS 0.9 TO 1.0 POSITIVE SPECIMENS >=1.1 Antibody index(AI) values reflect qualitative changes in antibody concentration that cannot be associated with clinical condition or disease state. EBV Interpretation See below (NOTE) Syndrome EBV VCA EBV VCA EBV EA EBV NA IgM IgG No EBV Neg Neg Neg Neg Acute Infection Pos Pos Pos Pos Past Infection Neg Pos Neg Pos Reactivation Pos or Neg Pos Pos or Neg Pos Note: EBV NA appears last in acute infection Performing Laboratory: [facility] [address] [place] [address] Performed By: #### P RCAL #### [place] [address] RPRon 2019 Reagin Ab RPR Ql (S) Non-reactive Normal Nonreactive [facility] Comment on above: Performed By: #### P RCAL #### [place] [address] HIV Screenon 10-19-2019 HIV Screen Nonreactive Normal Nonreactive [facility] Comment on above: Result Comment: Светлана ents taking a biotin dose of up to 5 mg/day should refrain from taking biotin for 4 hours prior to sample collection. Patients taking a biotin dose of 5 to 10 mg/day should refrain from taking biotin for 8 hours prior to sample collection. Patients taking a biotin dose > 10 mg/day should consult with their physician or the laboratory prior to having a sample taken. Clinicians should consider biotin interference as a source of error, when clinically suspicious of the laboratory result. Performed By: #### 3 HIV #### [place] [address] Misc. Teston 10-19-2019 [facility] Order Code ELIZABETH [facility] Comment on above: Performed By: #### G OX #### [place] [address] Test Name R. rickettsii [facility] Comment on above: Performed By: #### G OX #### [place] [address] CPKon 10-18-2019 CK [Catalytic activity/Vol] 153 U/L Normal 51-[address] [facility] Comment on above: Performed By: #### C K #### [facility] [address] [place], [place] [address] CRPon 10-18-2019 CRP [Mass/Vol] mg/L Normal 0.0-0.[address] [facility] Comment on above: Performed By: #### C RP3 #### [facility] [address] [place], [place] [address] Comprehensive Metabolic Pane eddie 10-18-2019 Albumin [Mass/Vol] 5.0 g/dL High 3.9-4.[address] [facility] Comment on above: Performed By: #### C MP #### [facility] [address] [place], [place] [address] ALP [Catalytic activity/Vol] 56 U/L Normal 38-[address] [facility] Comment on above: Performed By: #### C MP #### [facility] [address] [place], [place] [address] ALT [Catalytic activity/Vol] 142 U/L High 10-[address] [facility] Comment on above: Performed By: #### C MP #### [facility] [address] [place], [place] [address] Anion gap [Moles/Vol] 14 mmol/L Normal 9-18 [facility] Comment on above: Performed By: #### C MP #### [facility] [address] [place], [place] [address] AST [Catalytic activity/Vol] 42 U/L High 14-[address] [facility] Comment on above: Performed By: #### C MP #### [facility] [address] [place], [place] [address] Bilirubin [Mass/Vol] 0.4 mg/dL Normal 0.2-1.3 [facility] Comment on above: Performed By: #### C MP #### [facility] [address] [place], [place] [address] Calcium [Mass/Vol] 10.0 mg/dL Normal 8.5-10.[address] [facility] Comment on above: Performed By: #### C MP #### [facility] [address] [place] [address] Chloride [Moles/Vol] 101 mmol/L Normal 97-105 [facility] Comment on above: Performed By: #### C MP #### [facility] [address] [place], [place] [address] CO2 Blood 26 mmol/L Normal 22-[address] [facility] Comment on above: Performed By: #### C MP #### [facility] [address] [place], [place] [address] Creatinine [Mass/Vol] 1.07 mg/dL Normal 0.73-1.22 [facility] Comment on above: Performed By: #### C MP #### [facility] [address] [place], [place] [address] Glucose [Mass/Vol] 87 mg/dL Normal 74-[address] [facility] Comment on above: Result Comment: The [place] Diabetes Association (ADA) provides guidance for cutoff values for fasting glucose and random glucose. The ADA defines fasting as no caloric intake for at least 8 hours.Fasting plasma glucose results between 100 to 125 mg/dL indicate increased risk for diabetes (prediabetes). Fasting plasma glucose results greater than or equal to 126 mg/dL meet the criteria for diagnosis of diabetes. In the absence of unequivocal hyperglycemia, results should be confirmed by repeat testing. In a patient with classic symptoms of hyperglycemia or hyperglycemic crisis, random plasma glucose results greater than or equal to 200 mg/dL meet the criteria for diagnosis of diabetes. Reference: Standards of Medical Care in Diabetes 2016; [place] [employer] Association. Diabetes Care. 2016;39(Suppl 1). Performed By: #### C MP #### [facility] [address] [place], [place] [address] Potassium [Moles/Vol] 4.2 mmol/L Normal 3.7-5.1 [facility] Comment on above: Performed By: #### C MP #### [facility] [address] [place], [place] [address] Protein [Mass/Vol] 7.5 g/dL Normal 6.3-8.[address] [facility] Comment on above: Performed By: #### C MP #### [facility] [address] [place], [place] [address] Sodium [Moles/Vol] 141 mmol/L Normal 136-[address] [facility] Comment on above: Performed By: #### C MP #### [facility] [address] [place] [address] Urea nitrogen [Mass/Vol] 15 mg/dL Normal 9-[address] [facility] Comment on above: Performed By: #### C MP #### [place] [address] Ferritinon 10-18-2019 Ferritin [Mass/Vol] 276.5 ng/mL Normal 30.3-565.7 [facility] Comment on above: Result Comment: Светлана ents taking a biotin dose of up to 5 mg/day should refrain from taking biotin for 4 hours prior to sample collection. Patients taking a biotin dose of 5 to 10 mg/day should refrain from taking biotin for 8 hours prior to sample collection. Patients taking a biotin dose > 10 mg/day should consult with their physician or the laboratory prior to having a sample taken. Clinicians should consider biotin interference as a source of error, when clinically suspicious of the laboratory result. Performed By: #### F ERR2 #### [place] [address] Hemogram/Diffon 10-18-2019 Abs Immature Grans 0.01 thou/cmm Normal 0.00-0.05 [facility] Comment on above: Performed By: #### C BCD1 #### [place] [address] Abs Neut (ANC) 4.09 thou/cmm Normal 1.78-5.[address] [facility] Comment on above: Performed By: #### C BCD1 #### [place] [address] Abs. Baso 0.06 thou/cmm Normal 0.01-0.[address] [facility] Comment on above: Performed By: #### C BCD1 #### [place] [address] Abs. Coal 0.63 thou/cmm Normal 0.30-0.[address] [facility] Comment on above: Performed By: #### C BCD1 #### [place] [address] Basophils/100 WBC (Bld) 1.0 % Normal [facility] Comment on above: Performed By: #### C BCD1 #### [facility] [address] [place], [place] [address] Eosinophils (Bld) [#/Vol] 0.14 thou/cmm Normal 0.04-0.[address] [facility] Comment on above: Performed By: #### C BCD1 #### [facility] [address] [place], [place] [address] Eosinophils/100 WBC (Bld) 2.2 % Normal [facility] Comment on above: Performed By: #### C BCD1 #### [facility] [address] [place], [place] [address] Erythrocyte distribution width (RBC) [Ratio] 12.1 % Normal 11.6-14.[address] [facility] Comment on above: Performed By: #### C BCD1 #### [facility] [address] [place], [place] [address] Hematocrit (Bld) [Volume fraction] 43.5 % Normal 40.1-51.[address] [facility] Comment on above: Performed By: #### C BCD1 #### [facility] [address] [place], [place] [address] Hemoglobin (Bld) [Mass/Vol] 14.7 g/dL Normal 13.7-17.[address] [facility] Comment on above: Performed By: #### C BCD1 #### [facility] [address] [place], [place] [address] Immature Grans 0.20 % Normal [facility] Comment on above: Performed By: #### C BCD1 #### [facility] [address] [place], [place] [address] Lymphocytes (Bld) [#/Vol] 1.32 thou/cmm Normal 0.84-2.[address] [facility] Comment on above: Performed By: #### C BCD1 #### [facility] [address] [place], [place] [address] Lymphocytes/100 WBC (Bld) 21.1 % Normal [facility] Comment on above: Performed By: #### C BCD1 #### [facility] [address] [place], [place] [address] MCH (RBC) [Entitic mass] 28.8 pg Normal 25.7-32.[address] [facility] Comment on above: Performed By: #### C BCD1 #### [facility] [address] [place], [place] [address] MCHC (RBC) [Mass/Vol] 33.8 % Normal 32.3-36.5 [facility] Comment on above: Performed By: #### C BCD1 #### [facility] [address] [place] [address] MCV (RBC) [Entitic vol] 85.3 fL Normal 83.2-95.[address] [facility] Comment on above: Performed By: #### C BCD1 #### [facility] [address] [place] [address] Monocytes/100 WBC (Bld) 10.1 % Normal [facility] Comment on above: Performed By: #### C BCD1 #### [facility] [address] [place] [address] Platelet mean volume (Bld) [Entitic vol] 9.2 fL Normal 8.7-12.[address] [facility] Comment on above: Performed By: #### C BCD1 #### [facility] [address] [place] [address] Platelets (Bld) [#/Vol] 296 thou/cmm Normal 141-[address] [facility] Comment on above: Performed By: #### C BCD1 #### [facility] [address] [place] [address] RBC (Bld) [#/Vol] 5.10 mil/cmm Normal 4.63-6.[address] [facility] Comment on above: Performed By: #### C BCD1 #### [facility] [address] [place] [address] RDW SD 37.9 fl Normal 36.1-45.[address] [facility] Comment on above: Performed By: #### C BCD1 #### [facility] [address] [place] [address] Seg Neutrophil 65.4 % Normal [facility] Comment on above: Performed By: #### C BCD1 #### [facility] [address] [place] [address] WBC (Bld) [#/Vol] 6.25 thou/cmm Normal 4.23-9.07 [facility] Comment on above: Performed By: #### C BCD1 #### [facility] [address] [place] [id number] MDRD GFRon 10-18-2019 GFR/1.73 sq M predicted among non-blacks MDRD (S/P/Bld) [Vol rate/Area] mL/min/{1.73_m2} Normal >60mL/min/1.[address] [facility] Comment on above: Result Comment: If t he patient is , multiply the result by 1.210. Performed By: #### G FR #### [place] [address] Monoteston 10-18-2019 Monocytes (Bld) [#/Vol] Negative Normal Negative [facility] Comment on above: Performed By: #### M JEIMY #### [place] [id number] Procalcitoninon 10-18-2019 Procalcitonin <0.06 Normal 0.00-0.[address] [facility] Comment on above: Result Comment: Used as an aid in the diagnosis and management of severe sepsis and septic shock. Based on studies in ICU patients, procalcitonin levels > 2.00 ng/mL represent an elevated risk of severe sepsis and/or septic shock, while levels <0.50 ng/mL represent a low risk of severe sepsis and/or septic shock. However, levels < 0.50 ng/mL do not exclude infection, as localized infections or systemic infections in early stages (<6 hours) can be associated with low concentrations. Levels between 0.50 and 2.00 ng/mL should be interpreted in the clinical context of the patient, as a variety of non-infectious conditions such as mcgee, trauma, surgery, and severe cardiogenic shock can cause procalcitonin elevations. Performed By: #### P RCAL #### [place] [id number] Vital Signs Date Time Vital Sign Value Performing Clinician Isaura mae 06-09-2024 13:040 Body height 177.8 cm No Primary Care Physician [facility] 06-09-2024 13:-0400 Body mass index (BMI) [Ratio] 25.7 kg/m2 No Primary Care Physician [facility] 06-09-2024 13:0400 Body weight 81.19 kg No Primary Care Physician [facility] 06-09-2024 13:-0400 Diastolic blood pressure 85 mm[Hg] No Primary Care Physician [facility] 06-09-2024 13:0400 Heart rate 59 /min No Primary Care Physician [facility] 06-09-2024 13:040 Respiratory rate 16 /min No Primary Care Physician [facility] 06-09-2024 13:0400 Systolic blood pressure 146 mm[Hg] No Primary Care Physician [facility] Encounters Encounter Date Encounter Type Care Provider Facility Start: 12-23-2024 End: 12-23-[address] Ciro Blas MD -[facility] Start: 12-23-2024 End: 12-23-2024 ambulatory [facility] [place] Start: 07-20-2024 Non-patient / Non-visit Dr. Rena RHODES [facility] Start: 07-20-2024 End: 07-20-2024 ambulatory No Primary Care Physician [facility] Work Phone: Start: 07-20-2024 End: 07-20-[address] Ciro Blas MD [facility] Work Phone: Start: 07-20-2024 End: 07-20-2024 ambulatory Ciro Blas Facility:[facility] Start: 06-09-2024 End: 06-09-[address] Ciro Blas MD -[facility] Work Phone: Start: 06-09-2024 End: 06-09-2024 ambulatory No Primary Care Physician [facility] Work Phone: Start: 06-09-2024 End: 06-09-2024 ambulatory [place] [facility] Facility:[facility] Start: 03-30-2024 End: 03-30-[address] Hernan Victoria MD -[facility] Work Phone: Start: 03-30-2024 End: 03-30-2024 ambulatory No Primary Care Physician Facility:[facility] Start: 02-06-2024 End: 02-06-2024 ambulatory Hernan Victoria Facility:[facility] Start: 02-05-2024 End: 02-05-2024 ambulatory No Primary Care Physician Facility:[facility] Start: 01-06-2024 End: 01-06-2024 ambulatory No Primary Care Physician Facility:[facility] Start: 11-11-2022 Non-patient / Non-visit DO Jaymisa Nunoer Work Phone: [facility] Start: 11-07-2022 End: 11-07-2022 ambulatory DO Alicia M Delfina Work Phone: [facility] Work Phone: Start: 11-07-2022 End: 11-07-2022 Patient encounter procedure DO Alicia Moilnanger Work Phone: [facility] Work Phone: Start: 11-05-2022 End: 11-05-2022 ambulatory DO Alicia Molinanger Work Phone: [facility] Work Phone: Start: 11-05-2022 End: 11-05-2022 Patient encounter procedure DO Alicia Molinanger Work Phone: [facility] Start: 10-29-2022 End: 10-29-2022 ambulatory [facility] Work Phone: Start: 10-29-2022 End: 10-29-2022 Patient encounter procedure [facility] Work Phone: Start: 10-09-2022 End: 10-09-2022 ambulatory [facility] Work Phone: Start: 10-09-2022 End: 10-09-2022 [facility] Start: 05-14-2022 End: 05-14-2022 ambulatory [facility] Work Phone: Start: 05-14-2022 End: 05-14-2022 Patient encounter procedure [facility] Procedures Date Procedure Procedure Detail Performing Clinician Start: 06-09-2024 Evaluation of diagno stic study results No Primary Care Physician Start: 03-30-2024 Plain X-ray of clavicle No Primary Care Physician Start: 10-09-2022 Plain x-ray of hand Start: 05-14-2022 Radiography of ankle Plan of Treatment Date Care Activity Detail Author Start: 12-23-2024 Plain X-ray of clavicle Clavicle [facility] Start: 12-23-2024 XR Clavicle Views [facility] Payers Date Payer Category Payer Unknown [id number] 2023 Self-pay [id number] 2023 Unknown [id number] Unknown [employer] DO NOT USE N22 [id number] Unknown [id number] Unknown [id number] Unknown [id number] Unknown [id number] Unknown [id number] Unknown [id number] Unknown [id number] Unknown [id number] Unknown [id number] Unknown [id number] Unknown [id number] Unknown [id number] Unknown [id number] Social History Date Type Detail Facility Start: 05-14-2022 End: 05-14-2022 Tobacco smoking status VTIS Unknown if ever smoked [facility] Start: 10-02-2019 Spouse/ Signif icant Other [facility] Start: 1985 Sex Assigned At Male W [facility] Start: 05-05-2024 Tobacco smoking status NHIS Never smoked tobacco (finding) [facility] Start: 06-13-2024 End: 06-30-2024 Sex Male (finding) [facility] Sex Male [facility] Procedure Code Equipment Code Equipment Origin al Text Equipment Identifier Dates ORIF, fracture, clavicle 2.7 VA clavicle plate CS2 FDA Start: 12-19-2023 ORIF, fracture, clavicle 2.7mm cortex screw FDA Start: 12-19-2023 ORIF, fracture, clavicle 2.7mm locking screw FDA Start: 12-19-2023 ORIF, fracture, clavicle 2.7mm locking screw FDA Start: 12-19-2023 ORIF, fracture, clavicle 2.7mm locking screw FDA Start: 12-19-2023 ORIF, fracture, clavicle 2.7 VA clavicle plate CS2 FDA Start: 12-19-2023 ORIF, fracture, clavicle 2.7mm cortex screw FDA Start: 12-19-2023 ORIF, fracture, clavicle 2.7mm locking screw FDA Start: 12-19-2023 ORIF, fracture, clavicle 2.7mm locking screw FDA Start: 12-19-2023 ORIF, fracture, clavicle 2.7mm locking screw FDA Start: 12-19-2023 ORIF, fracture, clavicle 2.7 VA clavicle plate CS2 FDA Start: 12-19-2023 ORIF, fracture, clavicle 2.7mm cortex screw FDA Start: 12-19-2023 ORIF, fracture, clavicle 2.7mm locking screw FDA Start: 12-19-2023 ORIF, fracture, clavicle 2.7mm locking screw FDA Start: 12-19-2023 ORIF, fracture, clavicle 2.7mm locking screw FDA Start: 12-19-2023 ORIF, fracture, clavicle 2.7 VA clavicle plate CS2 FDA Start: 12-19-2023 ORIF, fracture, clavicle 2.7mm cortex screw FDA Start: 12-19-2023 ORIF, fracture, clavicle 2.7mm locking screw FDA Start: 12-19-2023 ORIF, fracture, clavicle 2.7mm locking screw FDA Start: 12-19-2023 ORIF, fracture, clavicle 2.7mm locking screw FDA Start: 12-19-2023 ORIF, fracture, clavicle 2.7 VA clavicle plate CS2 FDA Start: 12-19-2023 ORIF, fracture, clavicle 2.7mm cortex screw FDA Start: 12-19-2023 ORIF, fracture, clavicle 2.7mm locking screw FDA Start: 12-19-2023 ORIF, fracture, clavicle 2.7mm locking screw FDA Start: 12-19-2023 ORIF, fracture, clavicle 2.7mm locking screw FDA Start: 12-19-2023 Evaluation note 03-30-2024 Note Date & Type Note Facility 03-30-2024 Evaluation note Diagnosis Onset Date Resolution Clavicular fracture inactive 2024 8:27am PVCs (premature ventricular contractions) acute June 09, 2024 1:18pm [facility] Work Phone: Procedure note 11-11-2022 Note Date & Type Note Facility 11-11-[address] [facility] Evaluation note Note Date & Type Note Facility Evaluation note No assessment information availa ble [facility] Work Phone: Reason for referral (narrative) Note Date & Type Note Facility Reason for referral (narrative) No reason for referral information available [facility] Work Phone: Summary Purpose Family History Relationship Condition Age at Onset Recorded Date/T carlos aunt Myocardial infarction Unknown brother Hypertension Unknown Advance Directives Advance Directive Response Recorded Date/ Time Living Will No May 14, 2 023 11:02am 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 Apprentice No May 14, 2022 11:02am Advance Directive Response Recorded Date/ Time Living Will No May 14, 023 12:02pm 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 Apprentice No May 14, 2022 12:02pm Chief Complaint and Reason for Visit Chief Complaint LEFT ANKLE STRAIN Chief Complaint EORDER Chief Complaint EORDER SOB Shortness of breath Chief Complaint Admit Date RIGHT CLAVICLE March 30, 2024 8 :27am Room 5 March 30, 2024 8 :35am PCVs (Cesar) June 09, 2024 1:1 8pm E-ORDER June 09, 2024 1:5 6pm Reason for Visit Admit Date Clavicular fracture March 30, 2024 8 :27am PVCs (premature ventricular contractions ) June 09, 2024 1:18pm Chief Complaint Admit Date RIGHT CLAVICLE March 30, 2024 8 :27am Room 5 March 30, 2024 8 :35am PCVs (Cesar) June 09, 2024 1:1 8pm E-ORDER June 09, 2024 1:5 6pm ARRYHTHMIA-OTHER July 20, 2024 2:53pm Chief Complaint Admit Date RIGHT CLAVICLE December 23, 2024 8: 23am RM 2 December 23, 2024 8: 29am Additional Source Comments (unrecognized sect ion and content) No Status Records FoundNo Status Records Found INFORMATION SOURCE (unrecogn ized section and content) DATE CREATED AUTHOR 10/23/2019 [facility] DATE CREATED AUTHOR 'Raisa PENALOZA ATJARAD 12/24/[address] [facility] Care Teams (unrecognized sec tion and content) Team Status: Active Member Role Status Dates Alicia Mathis , DO Primary Care Provider Active Team Status: Active Member Role Status Dates Alicia Mathis , DO Primary Care Provi val, Referring Provider, Other Provider Active Dr. Nghia Shields , Attending Provider Active Team Status: Inactive Member Role Status Dates Alicia Mathis , DO Primary Care Provider Active Ronald Guerrero MD Attending Provider, Referring Provide r Active Team Status: Active Member Role Status Dates Aliciajenna Mathis , DO Primary Care Provi val, Attending Provider, Referring Provider Active Team Status: Inactive Member Role Status Dates Alicia Mathis , DO Primary Care Provider, Attending Provider Active Team Status: Inactive Member Role Status Dates Alicia Mathis , Primary Care Provider Active Dr. Jacques Pratt MD Attending Provider, Referri ng Provider Active Team Status: Inactive Member Role Status Dates Alicia Mathis , DO Primary Care Provi val, Attending Provider, Referring Provider Active Team Status: Active Member Role Status Dates Ronald Guerrero MD Primary Care Provider Active Team Status: Inactive Member Role Status Dates No Primary Care Physician Primary Care Provider Active Start: March 30, 2024 End: March 30, 2024 No Primary Care Physician Referring Provider Active Start: March 30, 2024 End: March 30, 2024 Hernan Victoria MD Attending Provider Active St art: March 30, 2024 End: March 30, 2024 Team Status: Inactive Member Role Status Dates No Primary Care Physician Primary Care Provider Active Start: March 30, 2024 End: March 30, 2024 Dr. Ciro Blas MD Attending Provider Active S tart: March 30, 2024 End: March 30, 2024 Team Status: Inactive Member Role Status Dates Dr. Cior Blas MD Attending Provider Active S tart: June 09, 2024 End: June 09, 2024 Ronald Guerrero MD Primary Care Provider Active St art: June 09, 2024 End: June 09, 2024 Ronald Guerrero MD Referring Provider Active Start : June 09, 2024 End: June 09, 2024 Team Status: Inactive Member Role Status Dates Ronald Guerrero MD Primary Care Provider Active St art: June 09, 2024 End: June 09, 2024 Dr. Ciro Blas MD Attending Provider Active S tart: June 09, 2024 End: June 09, 2024 Dr. Ciro Blas MD Referring Provider Active S tart: June 09, 2024 End: June 09, 2024 Team Status: Inactive Member Role Status Dates Ronald Guerrero MD Primary Care Provider Active St art: July 20, 2024 End: July 20, 2024 Dr. Ciro Blas MD Attending Provider Active S tart: July 20, 2024 End: July 20, 2024 Dr. Ciro Blas MD Referring Provider Active S tart: July 20, 2024 End: July 20, 2024 Team Status: Active Member Role Status Dates Ronald Guerrero MD Primary Care Provider Active St art: July 20, 2024 Dr. Ciro Blas MD Attending Provider Active S tart: July 20, 2024 Team Status: Active Member Role/Relationship Status Dates Ronald Guerrero MD Primary care physician Active Team Status: Active Member Role/Relationship Status Dates No Primary Care Physician Referring Provider Active Start: December 23, 2024 Hernan Victoria MD Attending physician Active S tart: December 23, 2024 Ronald Guerrero MD Primary care physician Active S tart: December 23, 2024 Team Status: Inactive Member Role/Relationship Status Dates Ronald Guerrero MD Primary care physician Active S tart: December 23, 2024 End: December 23, 2024 Dr. Ciro Blas MD Attending physician Active Start: December 23, 2024 End: December 23, 2024 Team Status: Inactive Member Role/Relationship Status Dates No Primary Care Physician Referring Provider Active Start: December 23, 2024 End: December 23, 2024 Hernan Victoria MD Attending physician Active S tart: December 23, 2024 End: December 23, 2024 Ronald Guerrero MD Primary care physician Active S tart: December 23, 2024 End: December 23, 2024 Goals (unrecognized section and content) Goals may be documented in a n alternate sectionGoals may be documented in an alternate sectionGoals may be documented in an alternate sectionGoals may be documented in an alternate sectionGoals may be documented in an alternate sectionGoals may be documented in an alternate sectionGoals may be documented in an alternate sectionGoals may be documented in an alternate sectionGoals may be documented in an alternate sectionGoals may be documented in an alternate section FOR RECORDS PERTAINING TO PATIENTS WHO ARE OR HAVE BEEN ENROLLED IN A CHEMICAL DEPENDENCY/SUBSTANCEABUSE PROGRAM, SOME INFORMATION MAY BE OMITTED. This clinical summary was aggregated from multiple sources. Caution should be exercised in using it in the provision of clinical care. This summary normalizes information from multiple sources, and as a consequence, information in this document may materially change the coding, format and clinical context of patient data. In addition, data may be omitted in some cases. CLINICAL DECISIONS SHOULD BE BASED ON THE PRIMARY CLINICAL RECORDS. [facility] [employer] [facility]. provides no warranty or guarantee of the accuracy or completeness of information in this document.
[2025-03-22 06:07] LABS: Calprotectin, Stool 144 ug/g (0-120); Egg, Whole <0.10 kU/L (Class 0); Mussels 1.51 kU/L (Class III)
== END | disposition home or self-care (01) ==
LOC: MFPLAB 14:52
PROVIDERS: PCP Family Medicine; Referring Provider Family Medicine; Visit Provider Family Medicine
DX: R19.7 Diarrhea, unspecified (principal)
CPT/HCPCS: 36415; 82274; 83630; 83993; 86003; 86005